=== PATIENT | female | born 1945 | race Caucasian/White ===

== ENCOUNTER → 2019-04-05 | Outpatient (CLI) | payer MEDICARE ==
[2019-04-05 14:41] VITALS: BP 130/82; PULSE 68; RESP 18; TEMP 97.4; BMI 24.0
--- NOTE | 2019-04-05 15:07 | P.GSHP ---
History of Present Illness H&P Date: 04/05/19 Chief Complaint: Mammographic abnormality right breast Starr is a 73-year-old white female who underwent a bilateral mammogram on . Following this it was recommended that she undergo an ultrasound which was performed on the same day of the right breast. Ultrasound of the right breast evidently did not show any specific lesions of concern and it was felt that the patient could have routine screening. The patient states that she has felt in her right breast at the 6 o'clock position a nodule for approximately 4 weeks. This has increased in size. This is not tender but feels hard to the patient. The patient has not noted any nipple discharge or skin changes. The patient has not had any infection in her breast and no trauma to the breast. She had 2 right breast open biopsies in the past which were not cancer. The patient was on a breast cancer study with Dr. Valle 1993, she was randomized to tamoxifen versus placebo for 5 years. She found that she was taking the placebo. She then was on the second study with Dr. Valle 1998 she was on a study tamoxifen versus raloxifene for 5 years and she was on the tamoxifen. The patient drinks coffee daily. She does not smoke and is not exposed to secondhand smoke. She eats chocolate only occasionally. Careful risk analysis reveals a 5 year risk of 5.5% versus 2.2% for average 72-year-old Lifetime risk 13.9% versus 5.7% for average 72-year-old Family history: 1. mother: breast at 70, other breast at 80 (bilateral breast cancer) 2. patient: basal cell posterior shoulder 3. maternal grandmother: uterine cancer 4. paternal aunt: ovarain cancer 5. maternal cousin: breast cancer Hormonal history: menarche: 14 G0 menopause: 51 BCP: less than 1 year hormones: none Past surgical history: 1. Hysterectomy, left ovaries, done for bleeding 2. Osteomyelitis 3. Basal cell removed posterior shoulder 4. Pilonidal cyst 5. bunyon 6. Bilateral cataracts Medical History: none Social History: smoke: stopped at 36, 1 PPD alcohol: occasional drugs: Marijuana in the past - Constitutional Comment: headaches Constitutional: Denies chills, Denies fever - EENT Eyes: denies blurred vision, denies pain Ears: deny: decreased hearing, tinnitus Ears, nose, mouth and throat: Reports headache, Denies sore throat - Breasts Breasts: bilateral: as per HPI - Cardiovascular Cardiovascular: Denies chest pain, Denies shortness of breath - Respiratory Respiratory: Denies cough, Denies 7 - Gastrointestinal Comment: PUD, hiatal hernia Gastrointestinal: Denies abdominal pain, Denies diarrhea, Denies nausea, Denies vomiting - Genitourinary (Female) Genitourinary: Denies dysuria, Denies hematuria - Musculoskeletal Comment: arthritis in her back and neck Musculoskeletal: Denies myalgias - Integumentary Comment: basal cell cancer - Neurological Neurological: Denies numbness, Denies weakness - Psychiatric Psychiatric: Denies anxiety, Denies depression - Endocrine Endocrine: Denies fatigue, Denies weight change - Hematologic/Lymphatic Comment: none - Allergic/Immunologic Allergic/Immunologic: Reports as per HPI, Reports seasonal allergies Past Medical History History of Any Multi-Drug Resistant Organisms: None Reported Smoking Status: Never smoker Medications and Allergies Home Medications Medication Instructions Recorded Confirmed Type Acetaminophen [Tylenol] 500 mg PO Q4-6H PRN 04/05/19 04/05/19 History Atorvastatin [Lipitor] 20 mg PO DAILY 04/05/19 04/05/19 History Butalb/Acetaminophen/Caffeine 1 tab PO DAILY PRN 04/05/19 04/05/19 History [Fioricet 50-300-40 mg Capsule] Calcium Carbonate [Calcium] 1,500 mg PO DAILY 04/05/19 04/05/19 History Cholecalciferol [Vitamin D3] 400 unit PO DAILY 04/05/19 04/05/19 History Methocarbamol [Robaxin] 500 mg PO DAILY PRN 04/05/19 04/05/19 History Omeprazole 40 mg PO DAILY 04/05/19 04/05/19 History Stool Softener 1 tab PO DAILY 04/05/19 04/05/19 History Allergies Allergy/AdvReac Type Severity Reaction Status Date / Time ciprofloxacin [From Cipro] Allergy Nausea Unverified 04/05/19 14:32 diphenhydramine Allergy Rash/Hives Unverified 04/05/19 14:32 [From Benadryl] meclizine [From Antivert] Allergy Rash/Hives Unverified 04/05/19 14:32 Penicillins Allergy Swelling Unverified 04/05/19 14:32 alcohol AdvReac Rash/Hives Unverified 04/05/19 14:32 cefuroxime [From Ceftin] AdvReac Nausea Unverified 04/05/19 14:32 cortisone AdvReac Rash/Hives Unverified 04/05/19 14:32 nickel AdvReac Rash/Hives Unverified 04/05/19 14:32 Sulfa (Sulfonamide AdvReac Nausea Unverified 04/05/19 14:32 Antibiotics) tixocortol AdvReac Rash/Hives Unverified 04/05/19 14:32 wool AdvReac Rash/Hives Unverified 04/05/19 14:32 Surgical - Exam Vital Signs Temp Pulse Resp BP Pulse Ox 97.4 F L 68 18 130/82 97 04/05/19 14:38 04/05/19 14:38 04/05/19 14:38 04/05/19 14:38 04/05/19 14:38 BMI 24.1 - General well developed, well nourished, no distress - Eyes normal ocular movement, no icteric - ENT no hearing loss, no congestion - Neck no masses, trachea midline - Respiratory normal respiratory effort, clear to auscultation - Cardiovascular Rhythm: regular Heart Sounds: normal: S1, S2 - Abdomen Abdomen: soft, non tender, no guarding, no rigid, no rebound - Integumentary normal turgor - Neurologic no disoriented, no combative - Musculoskeletal normal gait, normal posture - Psychiatric oriented to time, oriented to person, oriented to place, speech is normal, memory intact breast exam: right breast: Positional exam reveals multiple scars from prior biopsies, at the 6 o'clock position there is a 2 x 2 centimeters firm area which patient states is new, fibrocystic changes, very dense breast tissue Right axilla: No adenopathy of concern Left breast: Multi-positional exam very dense breast tissue, fibrocystic changes, no dominant masses or nodules of concern Left axilla: fullness but no discrete adenopathy Results mammogram and ultrasound reports reviewed Assessment and Plan Assessment: Impression: 1. Mass right breast 2. Abnormal right breast mammogram/ultrasound of the right breast initially definitive lesions 3. Scar tissue right breast 4. Fibrocystic breast changes 5. High risk breast cancer 6. Family history of breast cancer 7. Family history of cancer Plan: 1. Follow biopsies palpable lesion right breast 2. Consider genetic counseling and possible chemo prevention 3. Consider abstaining from caffeinated beverages and chocolate patient does not smoke and is not exposed to secondhand smoke 4. Medical management of medical conditions CC: Dr. Avendaño
== END ==
LOC: WWCWWP 14:17
PROVIDERS: ATTEND Surgery
DX: Z53.9 Procedure and treatment not carried out, unspecified reason (principal)

== ENCOUNTER → 2019-05-12 | Outpatient (CLI) | payer MEDICARE ==
--- NOTE | 2019-05-12 11:32 | P.PCN ---
Date of Procedure: 05/12/19 Preoperative Diagnosis: mass right at 6 oclock Postoperative Diagnosis: same Procedure(s) Performed: core biopsy of the right breast Anesthesia: local Surgeon: Ashley Meléndez Pathology: other (breast tissue) Condition: stable Disposition: same day Indications for Procedure: firm mass right bresat att 6 o clock not seen radiographically Operative Findings: dense breast tissue Description of Procedure: The palpable area of concern was identified in the right breast at the 6 o'clock position. The skin was prepped using Betadine. Approximately 5 mL of 1% lidocaine were used to anesthetize the skin in the area of the lesion. A small hayley was made in the skin. An 18-gauge Bard core biopsy needle was inserted into the neck and a sample was obtained. 3 samples were obtained. Specimens are sent to pathology. Patient tolerated procedure in stable condition. Steri- Strip was applied over the puncture site. The patient will follow up in 2 weeks for results.
== END | disposition home or self-care (01) ==
LOC: WWCWWP 10:56
PROVIDERS: ATTEND Surgery
DX: N64.89 Other specified disorders of breast (principal)
CPT/HCPCS: 88305

== ENCOUNTER → 2019-05-25 | Outpatient (CLI) | payer MEDICARE ==
[2019-05-25 09:06] VITALS: BP 114/77; PULSE 57; RESP 16; TEMP 98.1
--- NOTE | 2019-05-25 09:32 | P.PN ---
Subjective Progress Note Date: 05/25/19 Principal diagnosis: core biopsy results Starr is a 73 year old white female status post right breast core biopsy on 05-12-19. The pathology was benign, however the area of palpable abnormality remains present. The area of concern noted in the right breast is felt to be ne w. She wishes to have this excised in the operating room. She also comes for results of genetic testing. 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 The patient and her understand we are uncertain of the significance of this gene at this time. Objective - Vital Signs Vital signs: Vital Signs Temp 98.1 F 05/25/19 09:04 Pulse 57 L 05/25/19 09:04 Resp 16 05/25/19 09:04 BP 114/77 05/25/19 09:04 Pulse Ox 98 05/25/19 09:04 Intake & Output 05/24/19 05/25/19 05/25/19 18:59 06:59 18:59 Weight 62.596 kg - Constitutional General appearance: Present: average body habitus - EENT Eyes: Present: EOMI - Respiratory Respiratory: bilateral: CTA - Cardiovascular Heart sounds: normal: S1, S2 - Psychiatric Psychiatric: Present: A&O x's 3, appropriate affect, intact judgment & insight - Additional findings Additional findings: right bresat biopsy site mild echymosis no hematoma no infection persitant nodularity firm at 6 O Cock Assessment and Plan Assessment: Impression: 1. mass right breast 2. genetic evaluation VUS 3. family history of breast cnacer 4. family history of cancer Plan: 1. OR removal of palpable mass right breast 2. continue close survellience PATIENT HAS A TENDENCY TO FORM KELOIDS, HAS REQUESTED STERIOD INJECTION AT THE TIME OF SURGERY Risk and benfits of the procedure discussed with the patient and she wishes to proceed. Time with Patient: Less than 30
== END | disposition home or self-care (01) ==
LOC: WWCWWP 08:45
PROVIDERS: ATTEND Surgery
DX: Z53.9 Procedure and treatment not carried out, unspecified reason (principal)

== ENCOUNTER → 2019-07-07 | Outpatient (CLI) | payer MEDICARE ==
[2019-07-07 15:45] VITALS: BP 116/72; PULSE 54; RESP 18; TEMP 98.3
--- NOTE | 2019-07-07 16:06 | P.PN ---
Subjective Progress Note Date: 07/07/19 Principal diagnosis: mass right breast Starr is a 73-year-old white female who underwent a bilateral mammogram on . Following this it was recommended that she undergo an ultrasound which was performed on the same day of the right breast. Ultrasound of the right breast evidently did not show any specific lesions of concern and it was felt that the patient could have routine screening. The patient states that she has felt in her right breast at the 6 o'clock position a nodule for approximately 4 weeks. This has increased in size. This is not tender but feels hard to the patient. The patient has not noted any nipple discharge or skin changes. The patient has not had any infection in her breast and no trauma to the breast. She had 2 right breast open biopsies in the past which were not cancer. The patient was on a breast cancer study with Dr. Valle 1993, she was randomized to tamoxifen versus placebo for 5 years. She found that she was taking the placebo. She then was on the second study with Dr. Valle 1998 she was on a study tamoxifen versus raloxifene for 5 years and she was on the tamoxifen. The patient drinks coffee daily, switch to decaf.. She does not smoke and is not exposed to secondhand smoke. She eats chocolate only occasionally. The patient has not noted any changes in the size of her lump Rebiopsy the area of concern was done in . This revealed focal stromal fibrosis, focal small duct ectasia. Negative for tumor negative for atypia. Ultrasound of the right breast was done in March 2019 which did not show any specific lesions of concern. Additionally a bilateral mammogram was done on after which the ultrasound of the right breast was performed and secondary to the fact that nothing of concern was noted it was felt that routine screening would be adequate. [place] risk analysis reveals a 5 year risk of 5.5% versus 2.2% for average 72-year-old Lifetime risk 13.9% versus 5.7% for average 72-year-old Family history: 1. mother: breast at 70, other breast at 80 (bilateral breast cancer) 2. patient: basal cell posterior shoulder 3. maternal grandmother: uterine cancer 4. paternal aunt: ovarain cancer 5. maternal cousin: breast cancer Hormonal history: menarche: 14 G0 menopause: 51 BCP: less than 1 year hormones: none Past surgical history: 1. Hysterectomy, left ovaries, done for bleeding 2. Osteomyelitis 3. Basal cell removed posterior shoulder 4. Pilonidal cyst 5. bunyon 6. Bilateral cataracts Medical History: none Social History: smoke: stopped at 36, 1 PPD alcohol: occasional drugs: Marijuana in the past - Constitutional Comment: headaches Constitutional: Denies chills, Denies fever - EENT Eyes: denies blurred vision, denies pain Ears: deny: decreased hearing, tinnitus Ears, nose, mouth and throat: Reports headache, Denies sore throat - Breasts Breasts: bilateral: as per HPI - Cardiovascular Cardiovascular: Denies chest pain, Denies shortness of breath - Respiratory Respiratory: Denies cough, Denies 7 - Gastrointestinal Comment: PUD, hiatal hernia Gastrointestinal: Denies abdominal pain, Denies diarrhea, Denies nausea, Denies vomiting - Genitourinary (Female) Genitourinary: Denies dysuria, Denies hematuria - Musculoskeletal Comment: arthritis in her back and neck Musculoskeletal: Denies myalgias - Integumentary Comment: basal cell cancer - Neurological Neurological: Denies numbness, Denies weakness - Psychiatric Psychiatric: Denies anxiety, Denies depression - Endocrine Endocrine: Denies fatigue, Denies weight change - Hematologic/Lymphatic Comment: none - Allergic/Immunologic Allergic/Immunologic: Reports as per HPI, Reports seasonal allergies Past Medical History History of Any Multi-Drug Resistant Organisms: None Reported Smoking Status: Never smoker Objective - Vital Signs Vital signs: Vital Signs Temp 98.3 F 07/07/19 15:32 Pulse 54 L 07/07/19 15:32 Resp 18 07/07/19 15:32 BP 116/72 07/07/19 15:32 Pulse Ox 96 07/07/19 15:32 Intake & Output 07/06/19 07/07/19 07/07/19 18:59 06:59 18:59 Weight 63.503 kg - Exam BMI 24.8 - Constitutional General appearance: Present: average body habitus - EENT Eyes: Present: EOMI ENT: Present: hearing grossly normal - Neck Details: no adenopathy of concern Neck: Present: normal ROM - Respiratory Respiratory: bilateral: CTA - Cardiovascular Rhythm: regular Heart sounds: normal: S1, S2 - Gastrointestinal General gastrointestinal: Present: normal bowel sounds, soft - Integumentary Integumentary: Present: normal turgor - Musculoskeletal Musculoskeletal: Present: gait normal - Psychiatric Psychiatric: Present: A&O x's 3, appropriate affect, intact judgment & insight - Additional findings Additional findings: breast exam: bra 36B ptosis grade2/3 Inspection: Well-healed scar right breast from prior biopsies, bilateral mild nipple inversion which is been like that for many years Palpation: Right breast: At the 6 o'clock position there is increased fullness and nodularity approximately 2 cm x 2 cm in size fibrocystic changes no dominant masses or nodules of concern otherwise Right axilla: No adenopathy of concern Left breast: Multiple positional exam fibrocystic changes Left axilla: No adenopathy of concern Assessment and Plan Assessment: impression: 1. Fullness right breast 6 o'clock position 2. Scar tissue right breast 3. Fibrocystic breast changes 4. High risk breast cancer 5. Family history of breast cancer 6. Family history of cancer 7. 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 Plan: 1. Open biopsy 6:00 area right breast 2. Patient has asked about steroid injection at the time of surgery to decrease keloid formation of discussed this with pharmacy clear uncertain if they have anything to offer for this the patient wishes to proceed even if we do not have something to inject at the time of surgery CC: Dr. Espinoza Encounter: 15 minutes . 50% of time in planning and counselling
== END ==
LOC: WWCWWP 14:41
PROVIDERS: ATTEND Surgery
DX: Z53.9 Procedure and treatment not carried out, unspecified reason (principal)

== ENCOUNTER → 2019-07-18 | Day surgery (SDC) | payer MEDICARE ==
[2019-07-13 17:44] VITALS: BMI 24.4
[~2019-07-18] MED LIST: CLINDAMYCIN 900 MG in DEXTROSE 5% IN WATER 50 ML IVPB ONE; DEXAMETHASONE SOD PHOSPHATE 10 MG/ML 1 ML VIAL IV ONE; HEPARIN SODIUM,PORCINE 5,000 UNIT/ML 1 ML VIAL SQ ONE; HYDROmorphone 0.5 MG/0.5 ML SYRINGE IVP PRN; LACTATED RINGERS 1,000 ML IV ONE; LACTATED RINGERS 1,000 ML IV SCH; LIDOCAINE 1% (10MG/ML) FOR IV START INTRADERMA PRN; LIDOCAINE 1% INJ 10MG/ML (20 ML MDV) ONE; MIDAZOLAM 2 MG/2 ML VIAL ONE; ONDANSETRON 4 MG/2 ML VIAL IVP ONE; ONDANSETRON 4 MG/2 ML VIAL IVP PRN; PROPOFOL 10 MG/ML 20 ML VIAL IV ONE; SODIUM CHLORIDE 0.9% 50 ML with CLINDAMYCIN 900 MG IV ONE; SUCCINYLCHOLINE CHLORIDE 100 MG/5 ML SYR IV ONE; TRIAMCINOLONE ACETONIDE 40 MG/ML 1 ML VIAL IM ONE; TRIAMCINOLONE ACETONIDE 40 MG/ML 1 ML VIAL INTRADERMA ONE; ePHEDrine SULFATE/0.9% NACL/PF 50 MG/5 ML SYRINGE IV ONE; fentaNYL (PF) 50 MCG/ML 2 ML AMP ONE
--- NOTE | 2019-07-18 09:36 | P.OP ---
Date of Procedure: 07/18/19 Preoperative Diagnosis: Palpable mass right breast at 6:00/prior biopsy benign Postoperative Diagnosis: Most likely fibrocystic changes Procedure(s) Performed: Right breast excisional biopsy of palpable mass Anesthesia: KENROY Surgeon: Ashley Meléndez Estimated Blood Loss (ml): 2 Pathology: other (Right breast tissue approximately 3 cm x 3 cm) Condition: stable Disposition: same day Indications for Procedure: Palpable mass, increased in size, of concern to patient percutaneous biopsy benign Operative Findings: Dense tissue 6 o'clock position right breast Description of Procedure: The patient is a 73-year-old white female who noted increasing shortness in her right breast at the 6 o'clock position. Percutaneous biopsy was benign. However is definitely palpable increasing in size and the patient wishes for excision. The patient was taken to the operating room and following induction of anesthesia the right breast was prepped and draped in a sterile fashion. 8 mL of milligrams solution of Kenalog was injected into the area of the incision. Incision was made and carried down to the subcutaneous tissue. The breast tissue was identified. A very firm ridge of breast tissue was identified and there were noted to be multiple cysts within this area. Excision was performed. After assured that hemostasis was attained titanium clips were placed for localization. The specimen was painted for orientation. Deep tissues were closed using 3-0 Vicryl suture. The skin was closed using 4-0 Monocryl. Mastisol and Steri-Strips were applied. The patient tolerated the procedure in stable condition. All instrument and sponge counts were correct at the end of the case.
--- NOTE | 2019-07-18 09:38 | P.DS ---
Providers Attending physician: Ashley Meléndez Primary care physician: Ramon Avendaño Plan - Discharge Summary Discharge Rx Participant: Yes New Discharge Prescriptions: No Action Acetaminophen [Tylenol] 500 - 1,000 mg PO DIRECTED PRN PRN Reason: Pain Atorvastatin [Lipitor] 20 mg PO QAM Omeprazole 40 mg PO HS PRN PRN Reason: Heartburn Methocarbamol [Robaxin] 500 mg PO DAILY PRN PRN Reason: Pain Calcium Carbonate [Calcium] 1,200 mg PO DAILY Butalb/Acetaminophen/Caffeine [Fioricet 50-300-40 mg Capsule] 1 tab PO DAILY PRN PRN Reason: Headache Sennosides/Docusate Sodium [Senna Plus 8.6-50 mg Softgel] 1 each PO DAILY Cholecalciferol [Vitamin D3 (25 Mcg = 1000 Iu)] 2,000 unit PO DAILY Sinutab (Otc ) 1 tab PO DAILY PRN PRN Reason: Nasal Congestion Florajen(Dose Unknown) 1 cap PO QAM Discharge Medication List Acetaminophen [Tylenol] 500 - 1,000 mg PO DIRECTED PRN 04/05/19 [History] Atorvastatin [Lipitor] 20 mg PO QAM 04/05/19 [History] Butalb/Acetaminophen/Caffeine [Fioricet 50-300-40 mg Capsule] 1 tab PO DAILY PRN 04/05/19 [History] Calcium Carbonate [Calcium] 1,200 mg PO DAILY 04/05/19 [History] Methocarbamol [Robaxin] 500 mg PO DAILY PRN 04/05/19 [History] Omeprazole 40 mg PO HS PRN 04/05/19 [History] Cholecalciferol [Vitamin D3 (25 Mcg = 1000 Iu)] 2,000 unit PO DAILY 07/13/19 [History] Sennosides/Docusate Sodium [Senna Plus 8.6-50 mg Softgel] 1 each PO DAILY 07/13/19 [History] Sinutab (Otc ) 1 tab PO DAILY PRN 07/13/19 [History] Florajen(Dose Unknown) 1 cap PO QAM 07/14/19 [History] Follow up Appointment(s)/Referral(s): Ashley Meléndez MD [STAFF PHYSICIAN] - 1 Week Activity/Diet/Wound Care/Special Instructions: do not drive for 48 hours after discharge may shower after 48 hours wear bra at all times Discharge Disposition: HOME SELF-CARE
[2019-07-18 09:57] VITALS: TEMP 97.7
[2019-07-18 10:06] VITALS: RESP 16
[2019-07-18 11:09] VITALS: BP 106/69; PULSE 75
== END | disposition home or self-care (01) ==
LOC: OR 07:14
PROVIDERS: ATTEND Surgery
DX: N60.11 Diffuse cystic mastopathy of right breast (principal); E78.5 Hyperlipidemia, unspecified; K21.9 Gastro-esophageal reflux disease without esophagitis; K27.9 Peptic ulcer, site unspecified, unspecified as acute or chronic, without hemorrhage or perforation; K44.9 Diaphragmatic hernia without obstruction or gangrene; M46.92 Unspecified inflammatory spondylopathy, cervical region; Z80.3 Family history of malignant neoplasm of breast; Z80.41 Family history of malignant neoplasm of ovary; Z80.49 Family history of malignant neoplasm of other genital organs; Z90.710 Acquired absence of both cervix and uterus; Z79.899 Other long term (current) drug therapy; Z98.42 Cataract extraction status, left eye; Z98.41 Cataract extraction status, right eye; Z98.890 Other specified postprocedural states; Z87.891 Personal history of nicotine dependence
CPT/HCPCS: 88307; 19120; J2250; J1644; J1100; J3301; J2405; J2001; J3010; J0330; J2704

== ENCOUNTER → 2020-01-19 | Outpatient (CLI) | payer MEDICARE ==
[2020-01-19 09:39] VITALS: BP 123/78; PULSE 65; RESP 18; TEMP 98.2
--- NOTE | 2020-01-19 09:56 | P.PN ---
Subjective Progress Note Date: 01/19/20 Principal diagnosis: Follow-up biopsy right breast Starr is a 73-year-old white female who underwent a bilateral mammogram on . Following this it was recommended that she undergo an ultrasound which was performed on the same day of the right breast. Ultrasound of the right breast evidently did not show any specific lesions of concern and it was felt that the patient could have routine screening. The patient states that she has felt in her right breast at the 6 o'clock position a nodule for approximately 4 weeks. This has increased in size. This is not tender but feels hard to the patient. The patient has not noted any nipple discharge or skin changes. The patient has not had any infection in her breast and no trauma to the breast. She had 2 right breast open biopsies in the past which were not cancer. The patient was on a breast cancer study with Dr. Valle 1993, she was randomized to tamoxifen versus placebo for 5 years. She found that she was taking the placebo. She then was on the second study with Dr. Valle 1998 she was on a study tamoxifen versus raloxifene for 5 years and she was on the tamoxifen. The patient drinks coffee daily, switch to decaf.. She does not smoke and is not exposed to secondhand smoke. She eats chocolate only occasionally. The patient has not noted any changes in the size of her lump Rebiopsy via a core the area of concern was done in . This revealed focal stromal fibrosis, focal small duct ectasia. Negative for tumor negative for atypia. Ultrasound of the right breast was done in March 2019 which did not show any specific lesions of concern. Additionally a bilateral mammogram was done on after which the ultrasound of the right breast was performed and secondary to the fact that nothing of concern was noted it was felt that routine screening would be adequate. 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 The patient continued to have a persistent palpable abnormality at the site of the core biopsy. Therefore an excisional biopsy of this site was performed on July 18, 2019 which revealed columnar cell changes, metaplastic changes, usual type duct hyperplasia, fibrocystic changes and lobular adipose tissue. The patient at this time does not note any dominant masses or nodules of concern in either breast. She is not complaining of any pain in her breast. She is not complaining of any nipple discharge. Last mammogram was in breast mammogram performed on 12/2819 which was benign BIRADS 1. She is due for bilateral mammogram in March. [facility] risk analysis reveals a 5 year risk of 5.5% versus 2.2% for average 72-year-old Lifetime risk 13.9% versus 5.7% for average 72-year-old Family history: 1. mother: breast at 70, other breast at 80 (bilateral breast cancer) 2. patient: basal cell posterior shoulder 3. maternal grandmother: uterine cancer 4. paternal aunt: ovarain cancer 5. maternal cousin: breast cancer Hormonal history: menarche: 14 G0 menopause: 51 BCP: less than 1 year hormones: none Past surgical history: 1. Hysterectomy, left ovaries, done for bleeding 2. Osteomyelitis 3. Basal cell removed posterior shoulder 4. Pilonidal cyst 5. bunyon 6. Bilateral cataracts Medical History: none Social History: smoke: stopped at 36, 1 PPD alcohol: occasional drugs: Marijuana in the past - Constitutional Comment: headaches Constitutional: Denies chills, Denies fever - EENT Eyes: denies blurred vision, denies pain Ears: deny: decreased hearing, tinnitus Ears, nose, mouth and throat: Reports headache, Denies sore throat - Breasts Breasts: bilateral: as per HPI - Cardiovascular Cardiovascular: Denies chest pain, Denies shortness of breath - Respiratory Respiratory: Denies cough - Gastrointestinal Comment: PUD, hiatal hernia Gastrointestinal: Denies abdominal pain, Denies diarrhea, Denies nausea, Denies vomiting - Genitourinary (Female) Genitourinary: Denies dysuria, Denies hematuria - Musculoskeletal Comment: arthritis in her back and neck Musculoskeletal: Denies myalgias - Integumentary Comment: basal cell cancer - Neurological Neurological: Denies numbness, Denies weakness - Psychiatric Psychiatric: Denies anxiety, Denies depression - Endocrine Endocrine: Denies fatigue, Denies weight change - Hematologic/Lymphatic Comment: none - Allergic/Immunologic Allergic/Immunologic: Reports as per HPI, Reports seasonal allergies Past Medical History History of Any Multi-Drug Resistant Organisms: None Reported Smoking Status: Never smoker Objective - Vital Signs Vital signs: Vital Signs Temp 98.2 F 01/19/20 09:36 Pulse 65 01/19/20 09:36 Resp 18 07/31/20 09:36 BP 123/78 01/19/20 09:36 Pulse Ox 97 01/19/20 09:36 Intake & Output 01/18/20 01/19/20 01/19/20 18:59 06:59 18:59 Weight 62.596 kg - Exam BMI 24.4 - Constitutional General appearance: Present: average body habitus - EENT Eyes: Present: EOMI ENT: Present: hearing grossly normal - Neck Neck: Present: normal ROM - Respiratory Respiratory: bilateral: CTA - Cardiovascular Rhythm: regular Heart sounds: normal: S1, S2 - Gastrointestinal General gastrointestinal: Present: normal bowel sounds, soft - Integumentary Integumentary: Present: normal turgor - Musculoskeletal Musculoskeletal: Present: gait normal - Psychiatric Psychiatric: Present: A&O x's 3, appropriate affect, intact judgment & insight - Additional findings Additional findings: breast exam: BRA 36B inspection: grade 2 ptosis bilateral, multiple scars right breast well-healed Palpation: Right breast: Multiple positional exam no dominant masses or nodules of concern at this time fibrocystic changes Right axilla: No adenopathy of concern Left breast: Multi-positional exam no dominant masses or nodules of concern, fibrocystic changes Left axilla: No adenopathy of concern Assessment and Plan Assessment: Impression: 1. Fibrocystic breast changes 2. gene variant of unknown significance Plan: 1. Bilateral mammogram October the physician examined that time 2. Patient to call sooner if anything of concern CC: Dr. Avendaño encounter 25 minutes, > 50% of time in planning and counselling
== END | disposition home or self-care (01) ==
LOC: WWCWWP 09:31
PROVIDERS: ATTEND Surgery
DX: Z53.9 Procedure and treatment not carried out, unspecified reason (principal)

== ENCOUNTER → 2020-04-01 | Outpatient (CLI) | payer MEDICARE ==
--- NOTE | 2020-04-03 11:25 | MM ---
Reason for exam: screening (asymptomatic). Last mammogram was performed 2 months ago. History: Patient is postmenopausal, history of other cancer, and is nulliparous. Family history of breast cancer in mother at age 70, breast cancer in maternal aunt at age 60, and breast cancer in 3 maternal cousins. Benign excisional biopsy of the right breast, July 2019. 3 benign excisional biopsies of the right breast. Physical Findings: A clinical breast exam by your physician is recommended on an annual basis and results should be correlated with mammographic findings. MG 3D Screening Mammo W/Cad Bilateral CC and MLO view(s) were taken. Prior study comparison: January 16, 2020, right breast MG 3d diag mammo w/cad RT. January 16, 2020, mammogram. March 28, 2019, mammogram. Post surgical changes right breast. No significant changes when compared with prior studies. ASSESSMENT: Benign, BI-RAD 2 RECOMMENDATION: Routine screening mammogram of both breasts in 1 year.
== END | disposition home or self-care (01) ==
LOC: RADMAMWWP 09:30
PROVIDERS: ATTEND Surgery
DX: Z12.31 Encounter for screening mammogram for malignant neoplasm of breast (principal)
CPT/HCPCS: 77063; 77067

== ENCOUNTER → 2020-04-12 | Outpatient (CLI) | payer MEDICARE ==
[2020-04-12 09:36] VITALS: BP 107/67; PULSE 57; RESP 18; TEMP 98.6
--- NOTE | 2020-04-12 10:15 | P.PN ---
Subjective Progress Note Date: 04/12/20 Principal diagnosis: fibrocystic breast disease Starr is a 74-year-old white female who underwent a bilateral mammogram on . Following this it was recommended that she undergo an ultrasound which was performed on the same day of the right breast. Ultrasound of the right breast evidently did not show any specific lesions of concern and it was felt that the patient could have routine screening. The patient states that she has felt in her right breast at the 6 o'clock position a nodule for approximately 4 weeks. This has increased in size. This is not tender but feels hard to the patient. The patient has not noted any nipple discharge or skin changes. The patient has not had any infection in her breast and no trauma to the breast. She had 2 right breast open biopsies in the past which were not cancer. The patient was on a breast cancer study with Dr. Valle 1993, she was randomized to tamoxifen versus placebo for 5 years. She found that she was taking the placebo. She then was on the second study with Dr. Valle 1998 she was on a study tamoxifen versus raloxifene for 5 years and she was on the tamoxifen. The patient drinks coffee daily, switch to decaf.. She does not smoke and is not exposed to secondhand smoke. She eats chocolate only occasionally. The patient has not noted any changes in the size of her lump Rebiopsy via a core the area of concern was done in [id number]. This revealed focal stromal fibrosis, focal small duct ectasia. Negative for tumor negative for atypia. Ultrasound of the right breast was done in March 2019 which did not show any specific lesions of concern. Additionally a bilateral mammogram was done on after which the ultrasound of the right breast was performed and secondary to the fact that nothing of concern was noted it was felt that routine screening would be adequate. 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 The patient continued to have a persistent palpable abnormality at the site of the core biopsy. Therefore an excisional biopsy of this site was performed on July 18, 2019 which revealed columnar cell changes, metaplastic changes, usual type duct hyperplasia, fibrocystic changes and lobular adipose tissue. The patient at this time does not note any dominant masses or nodules of concern in either breast. She is not complaining of any pain in her breast. She is not complaining of any nipple discharge. Last mammogram was in breast mammogram performed on 12/2819 which was benign BIRADS 1. She is due for bilateral mammogram in March. Bilateral mammogram on 04-01-20 benign BIRADS 2 The patient has not noted any dominant masses or nodules of concern in either breast. She is not complaining of any breast pain. She is not complaining of any abnormal nipple discharge at this time. She has not had any recent history of trauma or infection in the breast. [facility] risk analysis reveals a 5 year risk of 5.5% versus 2.2% for average 72-year-old Lifetime risk 13.9% versus 5.7% for average 72-year-old Family history: 1. mother: breast at 70, other breast at 80 (bilateral breast cancer) 2. patient: basal cell posterior shoulder 3. maternal grandmother: uterine cancer 4. paternal aunt: ovarain cancer 5. maternal cousin: breast cancer Hormonal history: menarche: 14 G0 menopause: 51 BCP: less than 1 year hormones: none Past surgical history: 1. Hysterectomy, left ovaries, done for bleeding 2. Osteomyelitis 3. Basal cell removed posterior shoulder 4. Pilonidal cyst 5. bunyon 6. Bilateral cataracts Medical History: none Social History: smoke: stopped at 36, 1 PPD alcohol: occasional drugs: Marijuana in the past - Constitutional Comment: headaches Constitutional: Denies chills, Denies fever - EENT Eyes: denies blurred vision, denies pain Ears: deny: decreased hearing, tinnitus Ears, nose, mouth and throat: Reports headache, Denies sore throat - Breasts Breasts: bilateral: as per HPI - Cardiovascular Cardiovascular: Denies chest pain, Denies shortness of breath - Respiratory Respiratory: Denies cough - Gastrointestinal Comment: PUD, hiatal hernia Gastrointestinal: Denies abdominal pain, Denies diarrhea, Denies nausea, Denies vomiting - Genitourinary (Female) Genitourinary: Denies dysuria, Denies hematuria - Musculoskeletal Comment: arthritis in her back and neck Musculoskeletal: Denies myalgias - Integumentary Comment: basal cell cancer - Neurological Neurological: Denies numbness, Denies weakness - Psychiatric Psychiatric: Denies anxiety, Denies depression - Endocrine Endocrine: Denies fatigue, Denies weight change - Hematologic/Lymphatic Comment: none - Allergic/Immunologic Allergic/Immunologic: Reports as per HPI, Reports seasonal allergies Objective - Vital Signs Vital signs: Vital Signs Temp 98.6 F 04/12/20 09:34 Pulse 57 L 04/12/20 09:34 Resp 18 04/12/20 09:34 BP 107/67 04/12/20 09:34 Pulse Ox 99 04/12/20 09:34 Intake & Output 04/11/20 04/12/20 04/12/20 18:59 06:59 18:59 Weight 61.235 kg - Exam BMI 23.9 - Constitutional General appearance: Present: average body habitus - EENT Eyes: Present: EOMI ENT: Present: hearing grossly normal - Neck Neck: Present: normal ROM - Respiratory Respiratory: bilateral: CTA - Cardiovascular Rhythm: regular Heart sounds: normal: S1, S2 - Gastrointestinal General gastrointestinal: Present: normal bowel sounds, soft - Integumentary Integumentary: Present: normal turgor - Musculoskeletal Musculoskeletal: Present: gait normal - Psychiatric Psychiatric: Present: A&O x's 3, appropriate affect, intact judgment & insight - Additional findings Additional findings: breast exam: BRA: 36B inspection: grade 2 ptosis bilateral, multiple scars right breast well healed Palpation: right breast: Multiple positional exam no dominant masses or nodules of concern Right axilla: No adenopathy of concern Left breast: Multiple positional exam no dominant masses or nodules of concern Left axilla: No adenopathy of concern Assessment and Plan Assessment: Impression: 1. Fibrocystic breast changes bilaterally 2. Nothing at this time to warrant breast biopsy Plan: 1. Bilateral mammogram 1 year with physician exam at that time 2. Patient to call sooner if any questions or concerns Cc: Dr. Amos Gomez encounter 25 minutes > 50% of time in planning and counselling
== END | disposition home or self-care (01) ==
LOC: WWCWWP 09:22
PROVIDERS: ATTEND Surgery
DX: Z53.9 Procedure and treatment not carried out, unspecified reason (principal)

== ENCOUNTER → 2020-08-30 | Outpatient (CLI) | payer MEDICARE ==
[2020-08-30 13:58] VITALS: BP 96/66; PULSE 71; RESP 18; TEMP 98.5
--- NOTE | 2020-08-30 14:52 | P.PN ---
Subjective Progress Note Date: 08/30/20 Principal diagnosis: fibrocystic breast disease, mastodynia fibrocystic breast disease/breast pain Starr underwent a core biopsy of an area of a palpable concern in the right breast on [id number]. This revealed focal stromal fibrosis, focal small duct ectasia. Negative for tumor negative for atypia. Additionally a bilateral mammogram was done on after which the ultrasound of the right breast was performed and secondary to the fact that nothing of concern was noted it was felt that routine screening would be adequate. 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 The patient continued to have a persistent palpable abnormality at the site of the core biopsy. Therefore an excisional biopsy of this site was performed on July 18, 2019 which revealed columnar cell changes, metaplastic changes, usual type duct hyperplasia, fibrocystic changes and lobular adipose tissue. The patient at this time does not note any dominant masses or nodules of concern in either breast. She is still complaining of pain in her right breast it is not at the site of the biopsy. The patient states it is around the nipple areolar area and is shooting in nature. It started several months ago. She notes the pain almost daily. It is sharp in intensity and radiates through the breast. This has increased in intensity several months ago. She is not complaining of any nipple discharge. The intensity seems to be decreasing. Bilateral mammogram on 04-01-20 benign BIRADS 2 The patient has not noted any dominant masses or nodules of concern in either breast. She is not complaining of any abnormal nipple discharge at this time. She has not had any recent history of trauma or infection in the breast. She was started on estrogen (vaginal cream and a skin cream) she stopped vaginal cream several weeks ago. She is uncertain if the pain was related to the estrogen. The first was estradiol cream .01% twice a week, and the second clobetasol cream .05% BID. She states it is helping with skin itching. The patient drinks coffee daily, switch to decaf.. She does not smoke and is not exposed to secondhand smoke. chocolate: none [facility] risk analysis reveals a 5 year risk of 5.5% versus 2.2% for average 72-year-old Lifetime risk 13.9% versus 5.7% for average 72-year-old Family history: 1. mother: breast at 70, other breast at 80 (bilateral breast cancer) 2. patient: basal cell posterior shoulder 3. maternal grandmother: uterine cancer 4. paternal aunt: ovarain cancer 5. maternal cousin: breast cancer Hormonal history: menarche: 14 G0 menopause: 51 BCP: less than 1 year hormones: none Past surgical history: 1. Hysterectomy, left ovaries, done for bleeding 2. Osteomyelitis 3. Basal cell removed posterior shoulder 4. Pilonidal cyst 5. bunyon 6. Bilateral cataracts Medical History: none Social History: smoke: stopped at 36, 1 PPD alcohol: occasional drugs: Marijuana in the past - Constitutional Comment: headaches Constitutional: Denies chills, Denies fever - EENT Eyes: denies blurred vision, denies pain Ears: deny: decreased hearing, tinnitus Ears, nose, mouth and throat: Reports headache, Denies sore throat - Breasts Breasts: bilateral: as per HPI - Cardiovascular Cardiovascular: Denies chest pain, Denies shortness of breath - Respiratory Respiratory: Denies cough - Gastrointestinal Comment: PUD, hiatal hernia Gastrointestinal: Denies abdominal pain, Denies diarrhea, Denies nausea, Denies vomiting - Genitourinary (Female) Genitourinary: Denies dysuria, Denies hematuria - Musculoskeletal Comment: arthritis in her back and neck Musculoskeletal: Denies myalgias - Integumentary Comment: basal cell cancer - Neurological Neurological: Denies numbness, Denies weakness - Psychiatric Psychiatric: Denies anxiety, Denies depression - Endocrine Endocrine: Denies fatigue, Denies weight change - Hematologic/Lymphatic Comment: none - Allergic/Immunologic Allergic/Immunologic: Reports as per HPI, Reports seasonal allergies Objective - Vital Signs Vital signs: Vital Signs Temp 98.5 F 08/30/20 13:53 Pulse 71 08/30/20 13:53 Resp 18 08/30/20 13:53 BP 96/66 08/30/20 13:53 Pulse Ox 98 08/30/20 13:53 Intake & Output 08/29/20 08/30/20 08/30/20 18:59 06:59 18:59 Weight 61.235 kg - Exam BMI 23.9 - Constitutional General appearance: Present: average body habitus - EENT Eyes: Present: EOMI ENT: Present: hearing grossly normal - Neck Neck: Present: normal ROM - Respiratory Respiratory: bilateral: CTA - Cardiovascular Rhythm: regular Heart sounds: normal: S1, S2 - Gastrointestinal General gastrointestinal: Present: soft - Integumentary Integumentary: Present: normal turgor - Musculoskeletal Musculoskeletal: Present: gait normal - Psychiatric Psychiatric: Present: A&O x's 3, appropriate affect, intact judgment & insight - Additional findings Additional findings: breast exam: BRA: 34B inspection: Multiple scars right breast from prior biopsies, bilateral nipple inversion chronic Palpation: Right breast: Multiple scars right breast from prior biopsies, chronic nipple inversion, fibrocystic changes a multi-positional exam no dominant masses or nodules of concern Right axilla: No adenopathy of concern Left breast: Fibrocystic changes a multi-positional exam Left axilla: No adenopathy of concern Assessment and Plan Assessment: Pressure: 1. Fibrocystic breast changes 2. Multiple scars right breast from prior biopsies/mastodynia right breast improving 3. Patient on estrogen cream which has not seemed to exacerbate the discomfort in the breast Plan: 1. Lifestyle modifications will be continued/avoid caffeine caffeine 2. Nothing at this time which would warrant interventional biopsy 3. If patient gets worse patient will call us 4. Bilateral mammogram in March physician exam at that time Cc: Dr. Trinidad
== END | disposition home or self-care (01) ==
LOC: WWCWWP 13:44
PROVIDERS: ATTEND Surgery
DX: N60.12 Diffuse cystic mastopathy of left breast (principal); N60.11 Diffuse cystic mastopathy of right breast; L90.5 Scar conditions and fibrosis of skin; Z79.818 Long term (current) use of other agents affecting estrogen receptors and estrogen levels; Z87.891 Personal history of nicotine dependence

== ENCOUNTER → 2021-04-03 | Outpatient (CLI) | payer MEDICARE ==
--- NOTE | 2021-04-04 11:04 | MM ---
Reason for exam: screening (asymptomatic). Last mammogram was performed 1 year ago. History: Patient is postmenopausal, history of other cancer, and is nulliparous. Family history of breast cancer in mother at age 70, breast cancer in maternal aunt at age 60, and breast cancer in 3 maternal cousins. Benign excisional biopsy of the right breast, July 2019. 3 benign excisional biopsies of the right breast. Physical Findings: A clinical breast exam by your physician is recommended on an annual basis and results should be correlated with mammographic findings. MG 3D Screening Mammo W/Cad Bilateral CC and MLO view(s) were taken. Prior study comparison: January 16, 2020, mammogram. March 28, 2019, mammogram. June 17, 2018, mammogram, performed at [facility]. June 06, 2018, mammogram, performed at [facility]. The breast tissue is heterogeneously dense. This may lower the sensitivity of mammography. There is no discrete abnormality. ASSESSMENT: Benign, BI-RAD 2 RECOMMENDATION: Routine screening mammogram of both breasts in 1 year.
== END | disposition home or self-care (01) ==
LOC: RADMAMWWP 10:14
PROVIDERS: ATTEND Surgery
DX: Z12.31 Encounter for screening mammogram for malignant neoplasm of breast (principal); Z78.0 Asymptomatic menopausal state; Z80.3 Family history of malignant neoplasm of breast
CPT/HCPCS: 77063; 77067

== ENCOUNTER → 2021-04-10 | Outpatient (CLI) | payer MEDICARE ==
[2021-04-10 14:23] VITALS: BP 108/71; PULSE 53; RESP 18; TEMP 98.4
--- NOTE | 2021-04-10 14:33 | P.PN ---
Subjective Progress Note Date: 04/10/21 Principal diagnosis: Fibrocystic breast changes Starr is a 75 year old white female who underwent a bilateral mammogram on [id number], this was benign BIRADS 2. The patient does not feel any dominant masses or nodules of concern. She underwent core biopsy of the right breast on 1119. This was benign. 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 She continued to have persistent palpable abnormality at the site of the core biopsy and therefore underwent an excisional biopsy on June which was benign. The patient is not using any estrogen vaginal cream at this time. Family history: 1. mother: breast at 70, other breast at 80 (bilateral breast cancer) 2. patient: basal cell posterior shoulder 3. maternal grandmother: uterine cancer 4. paternal aunt: ovarain cancer 5. maternal cousin: breast cancer Hormonal history: menarche: 14 G0 menopause: 51 BCP: less than 1 year hormones: none Past surgical history: 1. Hysterectomy, left ovaries, done for bleeding 2. Osteomyelitis 3. Basal cell removed posterior shoulder 4. Pilonidal cyst 5. bunyon 6. Bilateral cataracts Medical History: none Social History: smoke: stopped at 36, 1 PPD alcohol: occasional drugs: Marijuana in the past - Constitutional Comment: headaches Constitutional: Denies chills, Denies fever - EENT Eyes: denies blurred vision, denies pain Ears: deny: decreased hearing, tinnitus Ears, nose, mouth and throat: Reports headache, Denies sore throat - Breasts Breasts: bilateral: as per HPI - Cardiovascular Cardiovascular: Denies chest pain, Denies shortness of breath - Respiratory Respiratory: Denies cough - Gastrointestinal Comment: PUD, hiatal hernia Gastrointestinal: Denies abdominal pain, Denies diarrhea, Denies nausea, Denies vomiting - Genitourinary (Female) Genitourinary: Denies dysuria, Denies hematuria - Musculoskeletal Comment: arthritis in her back and neck Musculoskeletal: Denies myalgias - Integumentary Comment: basal cell cancer - Neurological Neurological: Denies numbness, Denies weakness - Psychiatric Psychiatric: Denies anxiety, Denies depression - Endocrine Endocrine: Denies fatigue, Denies weight change - Hematologic/Lymphatic Comment: none - Allergic/Immunologic Allergic/Immunologic: Reports as per HPI, Reports seasonal allergies Objective - Vital Signs Vital signs: Vital Signs Temp 98.4 F 04/10/21 14:21 Pulse 53 L 04/10/21 14:21 Resp 18 04/10/21 14:21 BP 108/71 04/10/21 14:21 Pulse Ox 94 L 04/10/21 14:21 Intake & Output 04/09/21 04/10/21 04/10/21 18:59 06:59 18:59 Weight 56.699 kg - Exam BMI 22.1 - Constitutional General appearance: Present: cooperative - EENT Eyes: Present: edentulous ENT: Present: hearing grossly normal - Neck Neck: Present: normal ROM - Respiratory Respiratory: bilateral: CTA - Cardiovascular Rhythm: regular Heart sounds: normal: S1, S2 - Gastrointestinal General gastrointestinal: Present: soft - Integumentary Integumentary: Present: normal turgor - Musculoskeletal Musculoskeletal: Present: gait normal - Psychiatric Psychiatric: Present: A&O x's 3, appropriate affect, intact judgment & insight - Additional findings Additional findings: Breast Exam: BRA: 36B inspection: bilateral grade 2 ptosis palpation: right breast: Multiple scars from prior biopsies, no dominant masses or nodules of concern on multiple positional exam Right axilla: No adenopathy of concern Left breast: Multi-positional exam fibrocystic changes no dominant masses or nodules of concern Left axilla: No adenopathy of concern Assessment and Plan Assessment: Impression: Fibrocystic breast changes bilateral Plan: Repeat bilateral mammogram 1 year with physician exam at that time CC: Dr. Trinidad
== END ==
LOC: WWCWWP 14:08
PROVIDERS: ATTEND Surgery
DX: N60.11 Diffuse cystic mastopathy of right breast (principal); N60.12 Diffuse cystic mastopathy of left breast; Z87.891 Personal history of nicotine dependence; Z88.0 Allergy status to penicillin; Z88.2 Allergy status to sulfonamides; Z88.1 Allergy status to other antibiotic agents; Z88.9 Allergy status to unspecified drugs, medicaments and biological substances; Z91.048 Other nonmedicinal substance allergy status

== ENCOUNTER → 2022-04-06 | Outpatient (CLI) | payer MEDICARE ==
--- NOTE | 2022-04-06 17:33 | MM ---
Reason for Exam: Screening (asymptomatic). Last screening mammogram was performed 12 month(s) ago. Patient History: Menarche at age 14. Patient has no children. Left ovary removed at age 39. Right ovary removed at age 39. Hysterectomy at age 39. Postmenopausal. Other cancer. Benign Excisional Biopsy on the right side. Benign Excisional Biopsy on the right side. Benign Excisional Biopsy on the right side. 07/2019, Benign Excisional Biopsy on the right side. Maternal cousin had breast cancer. Maternal cousin had breast cancer. Maternal cousin had breast cancer. Maternal aunt had breast cancer, age 60. Mother had breast cancer, age 70. Risk Values: Ansley 5 year model risk: 5.2%. NCI Lifetime model risk: 10.9%. Prior Study Comparison: 01/16/2020 Right Diagnostic Mammogram, [facility]. 04/01/2020 Bilateral Screening Mammogram, [facility]. 04/03/2021 Bilateral Screening Mammogram, [facility]. Tissue Density: The breast tissue is heterogeneously dense. This may lower the sensitivity of mammography. Findings: Analyzed By CAD. There is no suspicious group of microcalcifications or new suspicious mass in either breast. Overall Assessment: Benign, BI-RAD 2 Management: Screening Mammogram of both breasts in 1 year. A clinical breast exam by your physician is recommended on an annual basis and results should be correlated with mammographic findings. Electronically signed and approved by: Chapin Castillo M.D. Radiologis
== END | disposition home or self-care (01) ==
LOC: RADMAMWWP 07:52
PROVIDERS: ATTEND Surgery
DX: Z12.31 Encounter for screening mammogram for malignant neoplasm of breast (principal)
CPT/HCPCS: 77063; 77067

== ENCOUNTER → 2022-04-10 | Outpatient (CLI) | payer MEDICARE ==
[2022-04-10 10:46] VITALS: BP 114/75; PULSE 52; RESP 16
--- NOTE | 2022-04-10 11:07 | P.PN ---
Subjective Progress Note Date: 04/10/22 Principal diagnosis: fibrocystic breast changes Fibrocystic breast changes Starr is a 76 year old white female who underwent a bilateral mammogram on , this was benign BIRADS 2. The patient does not feel any dominant masses or nodules of concern. She underwent core biopsy of the right breast on [id number]. This was benign. 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 She continued to have persistent palpable abnormality at the site of the core biopsy and therefore underwent an excisional biopsy on June which was benign. The patient occasionally uses estrogen vaginal cream. Ansley Risk evaluation : 5 year 5.2% lifetime 10.9% Discussed with the patient her Ansley risk evaluation numbers. We have discussed chemoprevention at this time she has declined will be followed closely. Family history: 1. mother: breast at 70, other breast at 80 (bilateral breast cancer) 2. patient: basal cell posterior shoulder 3. maternal grandmother: uterine cancer 4. paternal aunt: ovarain cancer 5. maternal cousin: breast cancer Hormonal history: menarche: 14 G0 menopause: 51 BCP: less than 1 year hormones: none Past surgical history: 1. Hysterectomy, left ovaries, done for bleeding 2. Osteomyelitis 3. Basal cell removed posterior shoulder 4. Pilonidal cyst 5. bunyon 6. Bilateral cataracts Medical History: none Social History: smoke: stopped at 36, 1 PPD alcohol: occasional drugs: Marijuana in the past - Constitutional Comment: headaches Constitutional: Denies chills, Denies fever - EENT Eyes: denies blurred vision, denies pain Ears: deny: decreased hearing, tinnitus Ears, nose, mouth and throat: Reports headache, Denies sore throat - Breasts Breasts: bilateral: as per HPI - Cardiovascular Cardiovascular: Denies chest pain, Denies shortness of breath - Respiratory Respiratory: Denies cough - Gastrointestinal Comment: PUD, hiatal hernia Gastrointestinal: Denies abdominal pain, Denies diarrhea, Denies nausea, Denies vomiting - Genitourinary (Female) Genitourinary: Denies dysuria, Denies hematuria - Musculoskeletal Comment: arthritis in her back and neck Musculoskeletal: Denies myalgias - Integumentary Comment: basal cell cancer - Neurological Neurological: Denies numbness, Denies weakness - Psychiatric Psychiatric: Denies anxiety, Denies depression - Endocrine Endocrine: Denies fatigue, Denies weight change - Hematologic/Lymphatic Comment: none - Allergic/Immunologic Allergic/Immunologic: Reports as per HPI, Reports seasonal allergies Objective - Vital Signs Vital signs: Vital Signs Temp Pulse 52 L 04/10/22 10:42 Resp 16 04/10/22 10:42 BP 114/75 04/10/22 10:42 Pulse Ox 98 04/10/22 10:42 FiO2 Intake & Output 04/09/22 04/10/22 04/10/22 18:59 06:59 18:59 Weight 56.699 kg - Exam BMI: 22.1 - Constitutional General appearance: Present: cooperative - EENT Eyes: Present: EOMI ENT: Present: hearing grossly normal - Neck Neck: Present: normal ROM - Respiratory Respiratory: bilateral: CTA - Cardiovascular Heart sounds: normal: S1, S2 - Gastrointestinal General gastrointestinal: Present: soft - Integumentary Integumentary: Present: normal turgor - Musculoskeletal Musculoskeletal: Present: gait normal - Psychiatric Psychiatric: Present: A&O x's 3, appropriate affect, intact judgment & insight - Additional findings Additional findings: Breast Exam: BRA: 36B inspection: bilateral grade 2 ptosis; bilateral chronic slight nipple inversion palpation: right breast: Multiple scars from prior biopsies, no dominant masses or nodules of concern on multiple positional exam Right axilla: No adenopathy of concern Left breast: Multi-positional exam fibrocystic changes no dominant masses or nodules of concern Left axilla: No adenopathy of concern Assessment and Plan Assessment: Impression: Bilateral fibrocystic breast changes Bilateral chronic slight nipple inversion Bilateral mammogram from [id number] benign BIRADS 2 Plan: Bilateral mammogram in 1 year with physician exam at that time At this time patient has declined chemoprevention with discussed her Ansley five- year risk of 5.2% Cc: Dr. Lam
== END | disposition home or self-care (01) ==
LOC: WWCWWP 09:53
PROVIDERS: ATTEND Surgery
DX: Z53.9 Procedure and treatment not carried out, unspecified reason (principal)

== ENCOUNTER → 2022-11-11 | Outpatient (CLI) | payer MEDICARE ==
--- NOTE | 2022-11-11 15:08 | USB ---
Reason for Exam: Clinical finding. Patient History: Menarche at age 14. Patient has no children. Left ovary removed at age 39. Right ovary removed at age 39. Hysterectomy at age 39. Postmenopausal. Other cancer. Benign Excisional Biopsy on the right side. Benign Excisional Biopsy on the right side. Benign Excisional Biopsy on the right side. 07/2019, Benign Excisional Biopsy on the right side. Maternal cousin had breast cancer. Maternal cousin had breast cancer. Maternal cousin had breast cancer. Maternal aunt had breast cancer, age 60. Mother had breast cancer, age 70. Risk Values: Ansley 5 year model risk: 5.2%. NCI Lifetime model risk: 10.3%. Technique: Method: Whole Breast Handheld. Prior Study Comparison: 04/01/2020 Bilateral Screening Mammogram, [facility]. 04/03/2021 Bilateral Screening Mammogram, [facility]. 04/06/2022 Bilateral MG 3D screening mammo w/cad, [facility]. Findings: The whole breast of the right breast, the axilla of the right breast and the retroareolar of the right breast were scanned. Imaged: Ultrasound imaging of: All 4 quadrants, the retroareolar region and axilla. Tiny anechoic cyst at 7:00 is imaged from nipple measuring 0.2 x 3 x 2 mm. Dilated duct at the retroareolar region dilated up to 3 mm. No evidence for organizing fluid collection or mass. Overall Assessment: Benign, BI-RAD 2 Management: Screening Mammogram of both breasts in 1 year. Clinical management for patient's pain. A clinical breast exam by your physician is recommended on an annual basis and results should be correlated with mammographic findings. This exam should not preclude additional follow-up of suspicious palpable abnormalities. Results were given to the patient verbally at the time of exam. Electronically signed and approved by: Dinesh Brasher DO
--- NOTE | 2022-11-11 15:09 | MM ---
Reason for Exam: Clinical finding. Last screening mammogram was performed 7 month(s) ago. Patient History: Menarche at age 14. Patient has no children. Left ovary removed at age 39. Right ovary removed at age 39. Hysterectomy at age 39. Postmenopausal. Other cancer. Benign Excisional Biopsy on the right side. Benign Excisional Biopsy on the right side. Benign Excisional Biopsy on the right side. 07/2019, Benign Excisional Biopsy on the right side. Maternal cousin had breast cancer. Maternal cousin had breast cancer. Maternal cousin had breast cancer. Maternal aunt had breast cancer, age 60. Mother had breast cancer, age 70. Risk Values: Ansley 5 year model risk: 5.2%. NCI Lifetime model risk: 10.3%. Prior Study Comparison: 06/06/2018 Screening Mammogram, [facility]. 06/17/2018 Screening Mammogram, [facility]. 03/28/2019 Screening Mammogram, Unknown. 01/16/2020 Right Diagnostic Mammogram, [facility]. 01/16/2020 Screening Mammogram, Unknown. 04/01/2020 Bilateral Screening Mammogram, [facility]. 04/03/2021 Bilateral Screening Mammogram, [facility]. 04/06/2022 Bilateral MG 3D screening mammo w/cad, [facility]. Tissue Density: Right: The breast tissue is heterogeneously dense. This may lower the sensitivity of mammography. Findings: Analyzed By CAD. Right breast surgical clips. Findings correlate with patient's pain. No new suspicious masses, calcifications or distortions. Overall Assessment: Incomplete: need additional imaging evaluation, BI-RAD 0 Management: Diagnostic Breast Ultrasound of the right breast. Results were given to the patient verbally at the time of exam. Patient should continue monthly self-breast exams. A clinical breast exam by your physician is recommended on an annual basis. This exam should not preclude additional follow-up of suspicious palpable abnormalities. Note on Ansley scores and lifetime risk: 1. A Ansley score greater than 3% is considered moderate risk. If this is the case, consider specialist referral to assess eligibility for a risk reducing agent. 2. If overall lifetime risk for the development of breast cancer is 20% or higher, the patient may qualify for future screening with alternating mammogram and breast MRI. Electronically signed and approved by: Dinesh Brasher DO
== END | disposition home or self-care (01) ==
LOC: RADMAMWWP 13:59
PROVIDERS: ATTEND Family Medicine
DX: N60.01 Solitary cyst of right breast (principal); Z78.0 Asymptomatic menopausal state; Z80.3 Family history of malignant neoplasm of breast; Z90.721 Acquired absence of ovaries, unilateral
CPT/HCPCS: 77065; 76641; G0279; 77061

== ENCOUNTER → 2022-11-26 | Outpatient (CLI) | payer MEDICARE ==
--- NOTE | 2022-11-26 12:25 | P.PN ---
Subjective Progress Note Date: 11/26/22 Principal diagnosis: Fibrocystic breast disease Fibrocystic breast changes Starr is a 76 year old white female who underwent a bilateral mammogram on , this was benign BIRADS 2. The patient does not feel any dominant masses or nodules of concern. She underwent core biopsy of the right breast on [id number]. This was benign. 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 She continued to have persistent palpable abnormality at the site of the core biopsy and therefore underwent an excisional biopsy on June which was benign. The patient occasionally uses estrogen vaginal cream. Patient began having pain in her right breast approximately 6 weeks ago. The pain was located in the periareolar region. It spread medially. She has it intermittently. It is at its worst it is at least an 8 on a scale of 1-10 with 10 being the worst. She is not complaining of any nipple discharge or skin changes. She has not had any recent trauma or infection in the breast. She is on meloxicam for arthritis. The patient underwent a right diagnostic mammogram on and a right breast ultrasound. These were felt to be benign BIRADS 2. Bilateral screening of both breasts at 1 year interval was recommended. Caffiene: none nicotine: none chocolate: occasional BCP: used 1 months hormones: estrogen vaginal cream annually Ansley Risk evaluation : 5 year 5.2% lifetime 10.9% Discussed with the patient her Ansley risk evaluation numbers. We have discussed chemoprevention at this time she has declined will be followed closely. Family history: 1. mother: breast at 70, other breast at 80 (bilateral breast cancer) 2. patient: basal cell posterior shoulder 3. maternal grandmother: uterine cancer 4. paternal aunt: ovarain cancer 5. maternal cousin: breast cancer Hormonal history: menarche: 14 G0 menopause: 51 BCP: less than 1 year hormones: none Past surgical history: 1. Hysterectomy, left ovaries, done for bleeding 2. Osteomyelitis 3. Basal cell removed posterior shoulder 4. Pilonidal cyst 5. bunyon 6. Bilateral cataracts Medical History: none Social History: smoke: stopped at 36, 1 PPD alcohol: occasional drugs: Marijuana in the past - Constitutional Comment: headaches Constitutional: Denies chills, Denies fever - EENT Eyes: denies blurred vision, denies pain Ears: deny: decreased hearing, tinnitus Ears, nose, mouth and throat: Reports headache, Denies sore throat - Breasts Breasts: bilateral: as per HPI - Cardiovascular Cardiovascular: Denies chest pain, Denies shortness of breath - Respiratory Respiratory: Denies cough - Gastrointestinal Comment: PUD, hiatal hernia Gastrointestinal: Denies abdominal pain, Denies diarrhea, Denies nausea, Denies vomiting - Genitourinary (Female) Genitourinary: Denies dysuria, Denies hematuria - Musculoskeletal Comment: arthritis in her back and neck Musculoskeletal: Denies myalgias - Integumentary Comment: basal cell cancer - Neurological Neurological: Denies numbness, Denies weakness - Psychiatric Psychiatric: Denies anxiety, Denies depression - Endocrine Endocrine: Denies fatigue, Denies weight change - Hematologic/Lymphatic Comment: none - Allergic/Immunologic Allergic/Immunologic: Reports as per HPI, Reports seasonal allergies Objective - Constitutional General appearance: Present: cooperative - EENT Eyes: Present: EOMI ENT: Present: hearing grossly normal - Neck Neck: Present: normal ROM - Respiratory Respiratory: bilateral: CTA - Cardiovascular Heart sounds: normal: S1, S2 - Gastrointestinal General gastrointestinal: Present: soft - Integumentary Integumentary: Present: normal turgor - Musculoskeletal Musculoskeletal: Present: gait normal - Psychiatric Psychiatric: Present: A&O x's 3, appropriate affect, intact judgment & insight - Additional findings Additional findings: Breast Exam: BRA: 36B inspection: bilateral grade 2 ptosis; bilateral chronic slight nipple inversion palpation: right breast: Multiple scars from prior biopsies, no dominant masses or nodules of concern on multiple positional exam Right axilla: No adenopathy of concern Left breast: Multi-positional exam fibrocystic changes no dominant masses or nodules of concern Left axilla: No adenopathy of concern Assessment and Plan Assessment: Pressure: Mastodynia right breast of uncertain etiology Nothing on physical examination or radiographically of which would warrant an interventional biopsy Fibrocystic breast changes Plan: Bilateral mammogram and October with physician exam at that time Again discussed chemoprophylaxis secondary to her Ansley score, and additionally taking an antiestrogen agent may decrease her breast discomfort Appointment with medical oncology CC: DR. Lam
[2022-11-26 12:34] VITALS: BP 112/72; PULSE 58; RESP 17; TEMP 98.2
== END ==
LOC: WWCWWP 11:47
PROVIDERS: ATTEND Surgery
DX: R92.8 Other abnormal and inconclusive findings on diagnostic imaging of breast (principal); N64.4 Mastodynia; N60.11 Diffuse cystic mastopathy of right breast; Z80.3 Family history of malignant neoplasm of breast; Z88.0 Allergy status to penicillin; Z88.2 Allergy status to sulfonamides; Z91.048 Other nonmedicinal substance allergy status; Z88.1 Allergy status to other antibiotic agents; Z88.8 Allergy status to other drugs, medicaments and biological substances; Z88.9 Allergy status to unspecified drugs, medicaments and biological substances; Z87.891 Personal history of nicotine dependence

== ENCOUNTER → 2023-04-07 | Outpatient (CLI) | payer MEDICARE ==
--- NOTE | 2023-04-09 13:19 | MM ---
Reason for Exam: Screening (asymptomatic). Last screening mammogram was performed 12 month(s) ago. Patient History: Menarche at age 14. Patient has no children. Hysterectomy at age 39. Postmenopausal. Other cancer. Benign Excisional Biopsy on the right side. Benign Excisional Biopsy on the right side. Benign Excisional Biopsy on the right side. 07/2019, Benign Excisional Biopsy on the right side. Maternal cousin had breast cancer. Maternal cousin had breast cancer. Maternal cousin had breast cancer. Maternal aunt had breast cancer, age 60. Mother had breast cancer, age 70. Risk Values: Ansley 5 year model risk: 5.2%. NCI Lifetime model risk: 10.3%. Prior Study Comparison: 04/03/2021 Bilateral Screening Mammogram, [facility]. 04/06/2022 Bilateral MG 3D screening mammo w/cad, [facility]. 11/11/2022 Right MG 3D diag mammo w/cad RT, [facility]. Tissue Density: The breast tissue is heterogeneously dense. This may lower the sensitivity of mammography. Findings: Analyzed By CAD. Surgical clips in the right breast. There is no suspicious group of microcalcifications or new suspicious mass. Overall Assessment: Benign, BI-RAD 2 Management: Screening Mammogram of both breasts in [address] [facility] will attempt to contact patient to return for supplemental views and ultrasound if indicated. Patient should continue monthly self-breast exams. A clinical breast exam by your physician is recommended on an annual basis. This exam should not preclude additional follow-up of suspicious palpable abnormalities. Note on Ansley scores and lifetime risk: 1. A Ansley score greater than 3% is considered moderate risk. If this is the case, consider specialist referral to assess eligibility for a risk reducing agent. 2. If overall lifetime risk for the development of breast cancer is 20% or higher, the patient may qualify for future screening with alternating mammogram and breast MRI. Electronically signed and approved by: Dinesh Brasher DO
== END | disposition home or self-care (01) ==
LOC: RADMAMWWP 09:29
PROVIDERS: ATTEND Surgery
DX: Z12.31 Encounter for screening mammogram for malignant neoplasm of breast (principal); Z80.3 Family history of malignant neoplasm of breast
CPT/HCPCS: 77063; 77067

== ENCOUNTER → 2023-04-14 | Outpatient (CLI) | payer MEDICARE ==
[2023-04-14 10:02] VITALS: BP 110/72; PULSE 55; RESP 18; TEMP 98.5
--- NOTE | 2023-04-14 10:31 | P.PN ---
Subjective Progress Note Date: 04/14/23 Fibrocystic breast changes Starr is a 77 year old white female who underwent a bilateral mammogram on , this was benign BIRADS 2. The patient does not feel any dominant masses or nodules of concern. She underwent core biopsy of the right breast on [id number]. This was benign. 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 She continued to have persistent palpable abnormality at the site of the core biopsy and therefore underwent an excisional biopsy on June which was benign. The patient occasionally uses estrogen vaginal cream in the past but not recently. She had been having right breast pain which resolved when she started taking the raloxifene. She had a bilateral mammogram on 04-07-23 which was BIRAD 2 She is not complaining of any new lumps masses or nodules of concern in either breast. N0te Dr. Muniz 01-05-23 reviewed she was started on raloxifene; she is not complaining of any side effects related to the raloxifene. Should be noted that she was on the STAR trial in the past and took tamoxifen f or 5 years. This ended about 30 years ago. Caffiene: none nicotine: none chocolate: occasional BCP: used 1 months hormones: estrogen vaginal cream annually Ansley Risk evaluation : 5 year 5.2% lifetime 10.3% Again discussed the Ansley risk evaluation numbers and she is presently on chemoprophylaxis. Family history: 1. mother: breast at 70, other breast at 80 (bilateral breast cancer) 2. patient: basal cell posterior shoulder 3. maternal grandmother: uterine cancer 4. paternal aunt: ovarain cancer 5. maternal cousin: breast cancer Hormonal history: menarche: 14 G0 menopause: 51 BCP: less than 1 year hormones: none Past surgical history: 1. Hysterectomy, left ovaries, done for bleeding 2. Osteomyelitis 3. Basal cell removed posterior shoulder 4. Pilonidal cyst 5. bunyon 6. Bilateral cataracts Medical History: none Social History: smoke: stopped at 36, 1 PPD alcohol: occasional drugs: Marijuana in the past - Constitutional Comment: headaches Constitutional: Denies chills, Denies fever - EENT Eyes: denies blurred vision, denies pain Ears: deny: decreased hearing, tinnitus Ears, nose, mouth and throat: Reports headache, Denies sore throat - Breasts Breasts: bilateral: as per HPI - Cardiovascular Cardiovascular: Denies chest pain, Denies shortness of breath - Respiratory Respiratory: Denies cough - Gastrointestinal Comment: PUD, hiatal hernia Gastrointestinal: Denies abdominal pain, Denies diarrhea, Denies nausea, Denies vomiting - Genitourinary (Female) Genitourinary: Denies dysuria, Denies hematuria - Musculoskeletal Comment: arthritis in her back and neck Musculoskeletal: Denies myalgias - Integumentary Comment: basal cell cancer - Neurological Neurological: Denies numbness, Denies weakness - Psychiatric Psychiatric: Denies anxiety, Denies depression - Endocrine Endocrine: Denies fatigue, Denies weight change - Hematologic/Lymphatic Comment: none - Allergic/Immunologic Allergic/Immunologic: Reports as per HPI, Reports seasonal allergies Objective - Vital Signs Vital signs: Vital Signs Temp 98.5 F 04/14/23 09:51 Pulse 55 L 04/14/23 09:51 Resp 18 04/14/23 09:51 BP 110/72 04/14/23 09:51 Pulse Ox 98 04/14/23 09:51 FiO2 Intake & Output 04/13/23 04/14/23 04/14/23 18:59 06:59 18:59 Weight 58.06 kg - Constitutional General appearance: Present: cooperative - EENT Eyes: Present: EOMI ENT: Present: hearing grossly normal - Neck Neck: Present: normal ROM - Respiratory Respiratory: bilateral: CTA - Cardiovascular Rhythm: regular Heart sounds: normal: S1, S2 - Integumentary Integumentary: Present: normal turgor - Musculoskeletal Musculoskeletal: Present: gait normal - Psychiatric Psychiatric: Present: A&O x's 3, appropriate affect, intact judgment & insight - Additional findings Additional findings: Breast Exam: BRA: 36B inspection: bilateral grade 2 ptosis; bilateral chronic slight nipple inversion palpation: right breast: Multiple scars from prior biopsies, no dominant masses or nodules of concern on multiple positional exam Right axilla: No adenopathy of concern Left breast: Multi-positional exam fibrocystic changes no dominant masses or nodules of concern Left axilla: No adenopathy of concern Assessment and Plan Assessment: Impression: Mastodynia right breast soft after started on raloxifene Nothing on physical examination or radiographically of which would warrant an interventional biopsy Fibrocystic breast changes Plan: Bilateral mammogram 1 year with appointment follow up with medical oncology CC: DR. Lam
== END ==
LOC: WWCWWP 09:27
PROVIDERS: ATTEND Surgery
DX: N60.11 Diffuse cystic mastopathy of right breast (principal); N64.4 Mastodynia; Z85.3 Personal history of malignant neoplasm of breast; Z87.891 Personal history of nicotine dependence; Z88.1 Allergy status to other antibiotic agents; Z88.0 Allergy status to penicillin; Z88.8 Allergy status to other drugs, medicaments and biological substances; Z91.048 Other nonmedicinal substance allergy status; Z88.2 Allergy status to sulfonamides

== ENCOUNTER → 2023-07-15 | Outpatient (CLI) | payer MEDICARE ==
--- NOTE | 2023-07-15 13:55 | FL ---
EXAMINATION TYPE: FL barium swallow DATE OF EXAM: 07/15/2023 CLINICAL INDICATION: 77-year-old female reflux, throat clearing, losing voice, GERD COMPARISON: None Total Fluoroscopy Time: 2 minutes 37 seconds DAP: 368.56 mGycm2 76 images obtained. FINDINGS: The swallowing mechanism is normal. There is moderate hypertrophy of the cricopharyngeus causing mild to moderate narrowing of the esophageal lumen. The thoracic portion has a normal course and caliber. There is fine mucosal irregularity along the di stal half of the esophagus probably representing tertiary peristaltic waves. No abnormal filling defe ct is seen. There is a small sliding hiatal hernia with moderate gastroesophageal reflux. IMPRESSION: 1. Small sliding hiatal hernia with moderate gastroesophageal reflux. 2. Moderate hypertrophy of the cricopharyngeus muscle causing at least mild narrowing of the lumen of the cervical esophagus. The muscle hypertrophy may be secondary to chronic gastroesophageal reflux d isease. 3. Fine mucosal irregularity along the distal half of the esophagus could reflect tertiary peristalti c contractions. Endoscopy can exclude subtle mucosal erosions/esophagitis.
== END | disposition home or self-care (01) ==
LOC: RADUSWWP 10:41
PROVIDERS: ATTEND Otolaryngology
DX: H61.22 Impacted cerumen, left ear (principal); K21.9 Gastro-esophageal reflux disease without esophagitis; K44.9 Diaphragmatic hernia without obstruction or gangrene
CPT/HCPCS: 74220

== ENCOUNTER 2023-10-01 11:44 | Day surgery (SDC) | payer MEDICARE ==
[2023-09-30 13:40] VITALS: BMI 22.8
[~2023-10-01 11:44] MED LIST changes: -CLINDAMYCIN 900 MG in DEXTROSE 5% IN WATER 50 ML IVPB ONE; -DEXAMETHASONE SOD PHOSPHATE 10 MG/ML 1 ML VIAL IV ONE; -HEPARIN SODIUM,PORCINE 5,000 UNIT/ML 1 ML VIAL SQ ONE; -HYDROmorphone 0.5 MG/0.5 ML SYRINGE IVP PRN; -LACTATED RINGERS 1,000 ML IV ONE; -LIDOCAINE 1% (10MG/ML) FOR IV START INTRADERMA PRN; -LIDOCAINE 1% INJ 10MG/ML (20 ML MDV) ONE; -MIDAZOLAM 2 MG/2 ML VIAL ONE; -ONDANSETRON 4 MG/2 ML VIAL IVP ONE; -ONDANSETRON 4 MG/2 ML VIAL IVP PRN; -PROPOFOL 10 MG/ML 20 ML VIAL IV ONE; -SODIUM CHLORIDE 0.9% 50 ML with CLINDAMYCIN 900 MG IV ONE; -SUCCINYLCHOLINE CHLORIDE 100 MG/5 ML SYR IV ONE; -TRIAMCINOLONE ACETONIDE 40 MG/ML 1 ML VIAL IM ONE; -TRIAMCINOLONE ACETONIDE 40 MG/ML 1 ML VIAL INTRADERMA ONE; -ePHEDrine SULFATE/0.9% NACL/PF 50 MG/5 ML SYRINGE IV ONE; -fentaNYL (PF) 50 MCG/ML 2 ML AMP ONE
[2023-10-01] MEDS: LACTATED RINGERS 1,000 ML IV ONE (13:00)
[2023-10-01 13:38] VITALS: TEMP 98
[2023-10-01] MEDS ORDERED: PROPOFOL 10 MG/ML 20 ML VIAL IV ONE (14:00)
--- NOTE | 2023-10-01 14:08 | P.PCN ---
Date of Procedure: 10/01/23 Procedure(s) Performed: BRIEF HISTORY: Patient is a 78-year-old, pleasant, white female scheduled for an upper endoscopy as a part of evaluation of long-standing history of GERD for which she has been on omeprazole 40 mg daily for several years. For the last 2 months she is been having chronic hoarseness and chronic cough despite recent antibiotic therapy. Scheduled for an upper endoscopy to evaluate for possible GERD causing the symptoms PROCEDURE PERFORMED: Esophagogastroduodenoscopy. PREOPERATIVE DIAGNOSIS: []. IV sedation per anesthesia. PROCEDURE: After informed consent was obtained, the patient was brought into the endoscopy unit. IV sedation was administered by Anesthesia under continuous monitoring. Initially the Olympus GIF-140 video endoscope was inserted into the mouth. Esophagus intubated without any difficulty. It was gradually advanced into the stomach and duodenum and carefully examined. The bulb and the second part of the duodenum appeared normal. The scope at this time was withdrawn to the stomach, adequately insufflated with air, and upon careful examination, muco sa of the antrum,and mild gastritis and biopsies were done from this area. Mucosa of the body, cardia and the fundus appeared normal.multiple small gastric polyps noted which were biopsied. The scope was then withdrawn into the esophagus.small hiatal hernia noted. The GE junction was located at 39 cm from the incisors. The esophagus appeared normal. There were no erosions or ulcerations seen and the patient tolerated the procedure well. IMPRESSION: 1. Small hiatal hernia. 2. Mild antral gastritis. 3. Multiple small gastric polyps status post biopsy RECOMMENDATIONS: The findings of this examination were discussed with the patientas well as a family. She was advised to follow with the biopsy results. She'll continue with omeprazole 40 mg half hour before dinnertime and follow antireflux measures.].
[2023-10-01 15:02] VITALS: BP 130/80; PULSE 62; RESP 18
== END 2023-10-01 14:57 | disposition home or self-care (01) ==
LOC: ORWHC2ENDO 11:44
PROVIDERS: ATTEND Internal Medicine Gastroenterology
DX: K29.50 Unspecified chronic gastritis without bleeding (principal); K31.7 Polyp of stomach and duodenum; K44.9 Diaphragmatic hernia without obstruction or gangrene; K21.9 Gastro-esophageal reflux disease without esophagitis; Z88.0 Allergy status to penicillin; Z88.1 Allergy status to other antibiotic agents; Z88.2 Allergy status to sulfonamides; Z88.8 Allergy status to other drugs, medicaments and biological substances; Z91.09 Other allergy status, other than to drugs and biological substances; Z79.899 Other long term (current) drug therapy; Z87.891 Personal history of nicotine dependence
CPT/HCPCS: 43239; J2704; 88305

== ENCOUNTER → 2024-04-07 | Outpatient (CLI) | payer MEDICARE ==
--- NOTE | 2024-04-07 14:55 | MM ---
Reason for Exam: Screening (asymptomatic). Last screening mammogram was performed 12 month(s) ago. Patient History: Menarche at age 14. Patient has no children. Hysterectomy at age 39. Postmenopausal. Other cancer. Benign Excisional Biopsy on the right side. Benign Excisional Biopsy on the right side. Benign Excisional Biopsy on the right side. 07/2019, Benign Excisional Biopsy on the right side. Maternal cousin had breast cancer. Maternal cousin had breast cancer. Maternal cousin had breast cancer. Maternal aunt had breast cancer, age 60. Mother had breast cancer, age 70. Risk Values: Ansley 5 year model risk: 5.1%. NCI Lifetime model risk: 9.6%. Prior Study Comparison: 04/06/2022 Bilateral MG 3D screening mammo w/cad, [facility]. 11/11/2022 Right MG 3D diag mammo w/cad RT, [facility]. 04/07/2023 Bilateral MG 3D screening mammo w/cad, [facility]. Tissue Density: The breasts are heterogeneously dense, which may obscure small masses. Findings: Analyzed By CAD. Right breast surgical clips. Right breast: There is no suspicious group of microcalcifications or new suspicious mass. Left breast: There is no suspicious group of microcalcifications or new suspicious mass. Overall Assessment: Benign, BI-RAD 2 Management: Screening Mammogram of both breasts in [address] [facility] will attempt to contact patient to return for supplemental views and ultrasound if indicated. Patient should continue monthly self-breast exams. A clinical breast exam by your physician is recommended on an annual basis. This exam should not preclude additional follow-up of suspicious palpable abnormalities. Note on Ansley scores and lifetime risk: 1. A Ansley score greater than 3% is considered moderate risk. If this is the case, consider specialist referral to assess eligibility for a risk reducing agent. 2. If overall lifetime risk for the development of breast cancer is 20% or higher, the patient may qualify for future screening with alternating mammogram and breast MRI. [facility], , 04/07/2024 2:50 PM. Electronically signed and approved by: Dinesh Brasher DO
== END | disposition home or self-care (01) ==
LOC: RADMAMWWP 09:14
PROVIDERS: ATTEND Surgery
CPT/HCPCS: 77063; 77067

== ENCOUNTER → 2024-06-01 | Outpatient (CLI) | payer MEDICARE ==
[2024-06-01 09:53] VITALS: BP 134/79; PULSE 59; RESP 16; TEMP 97.8
--- NOTE | 2024-06-01 10:25 | P.PN ---
Subjective Progress Note Date: 06/01/24 Principal diagnosis: high risk breast cancer 06-01-24 Fibrocystic breast changes Starr is a 78 year old white female who underwent a bilateral mammogram on , this was benign BIRADS 2. The patient does not feel any dominant masses or nodules of concern. She underwent core biopsy of the right breast on [id number]. This was benign. The patient had genetic testing performed in her testing revealed a gene of uncertain significance reclassified as likely benign. She continued to have persistent palpable abnormality at the site of the core biopsy and therefore underwent an excisional biopsy on June which was benign. The patient occasionally uses estrogen vaginal cream in the past but now not used for a year She had been having right breast pain which resolved when she started taking the raloxifene. She had a bilateral mammogram on which was BIRAD 2 She is not complaining of any new lumps masses or nodules of concern in either breast. Note Dr. Muniz 07-06-23 reviewed she was started on raloxifene; she is not complaining of any side effects related to the raloxifene, she saw Dr. Muniz last week May 25 2024 and still recommended to continue the rolaxifene will request the note Should be noted that she was on the STAR trial in the past and took tamoxifen for 5 years. This ended about 30 years ago. Caffiene: none nicotine: none chocolate: occasional BCP: used 1 months hormones: estrogen vaginal cream annually Ansley Risk evaluation : 5 year 5.1% lifetime 9.6% Again discussed the Ansley risk evaluation numbers and she is presently on chemoprophylaxis. Family history: 1. mother: breast at 70, other breast at 80 (bilateral breast cancer) 2. patient: basal cell posterior shoulder 3. maternal grandmother: uterine cancer 4. paternal aunt: ovarain cancer 5. maternal cousin: breast cancer Hormonal history: menarche: 14 G0 menopause: 51 BCP: less than 1 year hormones: none Past surgical history: 1. Hysterectomy, left ovaries, done for bleeding 2. Osteomyelitis 3. Basal cell removed posterior shoulder 4. Pilonidal cyst 5. bunyon 6. Bilateral cataracts 7. bunyon right foot 8. right shoulder replacement Medical History: none Social History: smoke: stopped at 36, 1 PPD alcohol: occasional drugs: Marijuana in the past - Constitutional Comment: headaches Constitutional: Denies chills, Denies fever - EENT Eyes: denies blurred vision, denies pain Ears: deny: decreased hearing, tinnitus Ears, nose, mouth and throat: Reports headache, Denies sore throat - Breasts Breasts: bilateral: as per HPI - Cardiovascular Cardiovascular: Denies chest pain, Denies shortness of breath - Respiratory Respiratory: Denies cough - Gastrointestinal Comment: PUD, hiatal hernia Gastrointestinal: Denies abdominal pain, Denies diarrhea, Denies nausea, Denies vomiting - Genitourinary (Female) Genitourinary: Denies dysuria, Denies hematuria - Musculoskeletal Comment: arthritis in her back and neck Musculoskeletal: Denies myalgias - Integumentary Comment: basal cell cancer - Neurological Neurological: Denies numbness, Denies weakness - Psychiatric Psychiatric: Denies anxiety, Denies depression - Endocrine Endocrine: Denies fatigue, Denies weight change - Hematologic/Lymphatic Comment: none - Allergic/Immunologic Allergic/Immunologic: Reports as per HPI, Reports seasonal allergies Objective - Vital Signs Vital signs: Vital Signs Temp 97.8 F 06/01/24 09:50 Pulse 59 L 06/01/24 09:50 Resp 16 06/01/24 09:50 BP 134/79 06/01/24 09:50 Pulse Ox 99 06/01/24 09:50 FiO2 Intake & Output 05/31/24 06/01/24 06/01/24 18:59 06:59 18:59 Weight 57.606 kg - Constitutional General appearance: Present: cooperative - EENT Eyes: Present: EOMI ENT: Present: hearing grossly normal - Neck Neck: Present: normal ROM Thyroid: bilateral: normal size - Respiratory Respiratory: bilateral: CTA - Cardiovascular Rhythm: regular Heart sounds: normal: S1, S2 - Gastrointestinal General gastrointestinal: Present: soft - Integumentary Integumentary: Present: normal turgor - Musculoskeletal Musculoskeletal: Present: gait normal - Psychiatric Psychiatric: Present: A&O x's 3, appropriate affect, intact judgment & insight - Additional findings Additional findings: Breast Exam: BRA: 36B inspection: bilateral grade 2 ptosis; bilateral chronic slight nipple inversion palpation: right breast: Multiple scars from prior biopsies, no dominant masses or nodules of concern on multiple positional exam Right axilla: No adenopathy of concern Left breast: Multi-positional exam fibrocystic changes no dominant masses or nodules of concern Left axilla: No adenopathy of concern fungal infection in the skin under the right breast near the medial aspect Assessment and Plan Assessment: Impression: Mastodynia right breast improved after started on raloxifene Nothing on physical examination or radiographically of which would warrant an interventional biopsy Fibrocystic breast changes Fungal infection under right breast Plan: Bilateral mammogram March 2025 with appointment at that time follow up with medical oncology nystwerner under right breast, patient to follow-up if this does not clear up Follow-up in 1 month to check skin changes under right breast CC: DR. Lam
== END ==
LOC: WWCWWP 08:47
PROVIDERS: ATTEND Surgery
DX: Z12.31 Encounter for screening mammogram for malignant neoplasm of breast (principal); N60.12 Diffuse cystic mastopathy of left breast; R92.8 Other abnormal and inconclusive findings on diagnostic imaging of breast; Z88.0 Allergy status to penicillin; Z88.1 Allergy status to other antibiotic agents; Z88.2 Allergy status to sulfonamides; Z88.8 Allergy status to other drugs, medicaments and biological substances; Z91.048 Other nonmedicinal substance allergy status; Z80.3 Family history of malignant neoplasm of breast; Z87.891 Personal history of nicotine dependence

== ENCOUNTER → 2024-06-29 | Outpatient (CLI) | payer MEDICARE ==
[2024-06-29 09:09] VITALS: BP 124/61; PULSE 59; RESP 17; TEMP 98.4
--- NOTE | 2024-06-29 09:21 | P.PN ---
Subjective Progress Note Date: 06/29/24 Principal diagnosis: rash under right breast medical aspect 06-29-24 Principal diagnosis: high risk breast cancer Fibrocystic breast changes Starr is a 78 year old white female who underwent a bilateral mammogram on , this was benign BIRADS 2. The patient does not feel any dominant masses or nodules of concern. She underwent core biopsy of the right breast on [id number]. This was benign. The patient had genetic testing performed in her testing revealed a gene of uncertain significance reclassified as likely benign. She continued to have persistent palpable abnormality at the site of the core biopsy and therefore underwent an excisional biopsy on June which was benign. The patient occasionally uses estrogen vaginal cream in the past but now not used for a year She had been having right breast pain which resolved when she started taking the raloxifene. She had a bilateral mammogram on which was BIRAD 2 She is not complaining of any new lumps masses or nodules of concern in either breast. Note Dr. Muniz 07-06-23 reviewed she was started on raloxifene; she is not complaining of any side effects related to the raloxifene, she saw Dr. Muniz last week May 25 2024 and still recommended to continue the rolaxifene will request the note Should be noted that she was on the STAR trial in the past and took tamoxifen for 5 years. This ended about 30 years ago. She does have a rash in the inferior skin fold of the right breast in the medial aspect, this was treated as a fungal infection but has not resolved. Caffiene: none nicotine: none chocolate: occasional BCP: used 1 months hormones: estrogen vaginal cream annually Ansley Risk evaluation : 5 year 5.1% lifetime 9.6% Again discussed the Ansley risk evaluation numbers and she is presently on chemoprophylaxis. Family history: 1. mother: breast at 70, other breast at 80 (bilateral breast cancer) 2. patient: basal cell posterior shoulder 3. maternal grandmother: uterine cancer 4. paternal aunt: ovarain cancer 5. maternal cousin: breast cancer Hormonal history: menarche: 14 G0 menopause: 51 BCP: less than 1 year hormones: none Past surgical history: 1. Hysterectomy, left ovaries, done for bleeding 2. Osteomyelitis 3. Basal cell removed posterior shoulder 4. Pilonidal cyst 5. bunyon 6. Bilateral cataracts 7. bunyon right foot 8. right shoulder replacement Medical History: none Social History: smoke: stopped at 36, 1 PPD alcohol: occasional drugs: Marijuana in the past - Constitutional Comment: headaches Constitutional: Denies chills, Denies fever - EENT Eyes: denies blurred vision, denies pain Ears: deny: decreased hearing, tinnitus Ears, nose, mouth and throat: Reports headache, Denies sore throat - Breasts Breasts: bilateral: as per HPI - Cardiovascular Cardiovascular: Denies chest pain, Denies shortness of breath - Respiratory Respiratory: Denies cough - Gastrointestinal Comment: PUD, hiatal hernia Gastrointestinal: Denies abdominal pain, Denies diarrhea, Denies nausea, Denies vomiting - Genitourinary (Female) Genitourinary: Denies dysuria, Denies hematuria - Musculoskeletal Comment: arthritis in her back and neck Musculoskeletal: Denies myalgias - Integumentary Comment: basal cell cancer - Neurological Neurological: Denies numbness, Denies weakness - Psychiatric Psychiatric: Denies anxiety, Denies depression - Endocrine Endocrine: Denies fatigue, Denies weight change - Hematologic/Lymphatic Comment: none - Allergic/Immunologic Allergic/Immunologic: Reports as per HPI, Reports seasonal allergies Objective - Vital Signs Vital signs: Vital Signs Temp 98.4 F 06/29/24 09:06 Pulse 59 L 06/29/24 09:06 Resp 17 06/29/24 09:06 BP 124/61 06/29/24 09:06 Pulse Ox 98 06/29/24 09:06 FiO2 Intake & Output 06/28/24 06/29/24 06/29/24 18:59 06:59 18:59 Weight 57.606 kg - Constitutional General appearance: Present: cooperative - EENT Eyes: Present: EOMI ENT: Present: hearing grossly normal - Neck Neck: Present: normal ROM - Respiratory Respiratory: bilateral: CTA - Cardiovascular Rhythm: regular Heart sounds: normal: S1, S2 - Integumentary Integumentary: Present: normal turgor - Musculoskeletal Musculoskeletal: Present: gait normal - Psychiatric Psychiatric: Present: A&O x's 3, appropriate affect, intact judgment & insight - Additional findings Additional findings: Breast Exam: BRA: 36B inspection: bilateral grade 2 ptosis; bilateral chronic slight nipple inversion palpation: right breast: Multiple scars from prior biopsies, no dominant masses or nodules of concern on multi positional exam Right axilla: No adenopathy of concern Left breast: Multi-positional exam fibrocystic changes no dominant masses or nodules of concern Left axilla: No adenopathy of concern Rash persistent in the skin under the right breast near the medial aspect Assessment and Plan Assessment: Impression: Mastodynia right breast improved after started on raloxifene Nothing on physical examination or radiographically of which would warrant an interventional biopsy Fibrocystic breast changes Fungal infection under right breast Plan: Bilateral mammogram March 2025 with appointment at that time follow up with medical oncology dermatology appointment, 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 Lam
== END ==
LOC: WWCWWP 08:32
PROVIDERS: ATTEND Surgery
DX: N64.4 Mastodynia (principal); N60.11 Diffuse cystic mastopathy of right breast; B36.8 Other specified superficial mycoses; Z88.2 Allergy status to sulfonamides; Z88.1 Allergy status to other antibiotic agents; Z88.0 Allergy status to penicillin; Z88.8 Allergy status to other drugs, medicaments and biological substances; Z87.891 Personal history of nicotine dependence

== ENCOUNTER → 2024-10-27 | Outpatient (CLI) | payer MEDICARE ==
--- NOTE | 2024-10-27 15:14 | USB ---
Reason for Exam: Clinical finding. Patient History: Menarche at age 14. Patient has no children. Hysterectomy at age 39. Postmenopausal. Other cancer. Benign Excisional Biopsy on the right side. Benign Excisional Biopsy on the right side. Benign Excisional Biopsy on the right side. 07/2019, Benign Excisional Biopsy on the right side. Maternal cousin had breast cancer. Maternal cousin had breast cancer. Maternal cousin had breast cancer. Maternal aunt had breast cancer, age 60. Mother had breast cancer, age 70. Risk Values: Ansley 5 year model risk: 5.1%. NCI Lifetime model risk: 8.9%. Technique: Method: Targeted. Prior Study Comparison: 11/11/2022 Right MG 3D diag mammo w/cad RT, [facility]. 04/07/2023 Bilateral MG 3D screening mammo w/cad, [facility]. 04/07/2024 Bilateral MG 3D screening mammo w/cad, [facility]. Findings: The axilla of the left breast and the retroareolar of the left breast were scanned. Technique utilized:US breast axilla LT Image; Ultrasound imaging of: Palpable, retroareolar region and axilla. Normal-appearing left axillary lymph nodes. No suspicious mass or organizing fluid collection or enlarged lymph node. Overall Assessment: Benign, BI-RAD 2 Management: Screening Mammogram of both breasts in 5 months. A clinical breast exam by your physician is recommended on an annual basis and results should be correlated with mammographic findings. This exam should not preclude additional follow-up of suspicious palpable abnormalities. Results were given to the patient verbally at the time of exam. [facility], , 10/27/2024 3:11 PM. Electronically signed and approved by: Dinesh Brasher DO
== END | disposition home or self-care (01) ==
LOC: RADUSWWP 14:46
PROVIDERS: ATTEND Family Medicine
DX: R59.0 Localized enlarged lymph nodes (principal); Z78.0 Asymptomatic menopausal state; Z80.3 Family history of malignant neoplasm of breast

== ENCOUNTER → 2025-01-11 | Outpatient (CLI) | payer MEDICARE ==
[2025-01-11 13:29] VITALS: BP 109/71; PULSE 76; RESP 16; TEMP 98.2
--- NOTE | 2025-01-11 14:03 | P.SLEEP ---
History of Present Illness DATE: 01/11/2025 CONSULTATION/NEW PATIENT EVALUATION HISTORY OF PRESENT ILLNESS/SLEEP-WAKE EVALUATION: 79-year-old lady had been e valuated in the sleep center for possible obstructive sleep apnea hypopnea syndrome and insomnia. SLEEP SCHEDULE: Usually sleep schedule from 1011 PM to 66:30 AM. FALLING ASLEEP: Patient has difficulties with falling asleep, used to read in bedroom. DURING SLEEP: Patient usually sleeps on the back and side position with snoring and wakes up from sleep up to 4 times with 3 episodes of nocturia. Positive history of grinding teeth dry mouth, sleep talking no history of hypnogogical hallucinations, sleep paralysis, or cataplexy. DURING THE DAY/WAKE STATE: Usually patient does not take naps. [place] sleepiness scale is 3. PAST MEDICAL HISTORY:Acid reflux. PAST SURGICAL HISTORY: Hysterectomy, right arm surgical treatment for osteomyelitis, surgical treatment for basal cell carcinoma of the skin, pilonidal cyst surgical treatment, bilateral cataract surgery, right shoulder replacement. MEDICATIONS: Please see below. SOCIAL HISTORY: Please see below. FAMILY HISTORY: Please see below. REVIEW OF SYSTEMS: Snoring, multiple awakenings from sleep. No fevers. No double vision. No recent chest pain. No shortness of breath. No abdominal pain. No bleeding episodes. No blood in urine. No seizure episodes. PHYSICAL EXAMINATION: GENERAL: A pleasant patient without any distress. VITAL SIGNS: Please see below, weight 127 pounds, BMI 23.9. HEENT: PERRLA, EOMI. Evaluation of oropharynx showed tongue protrudes midline, low position of soft palate Mallampati 4. NECK: Supple. No JVD. Thyroid is not palpable. 14 inches in circumference. LUNGS: Clear to percussion and to auscultation. Good air exchange. No wheezing or rhonchi. HEART: S1, S2 regular. No murmurs, gallops or rubs. ABDOMEN: Soft and nontender. Bowel sounds are present. No organomegaly appreciated. EXTREMITIES: No clubbing or cyanosis. 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 Cranial nerves 2 to 7 intact. There is no fasciculation or atrophy noted. No focal deficits observed. ASSESSMENT: 1. Snoring, multiple awakenings from sleep, extremely low position of soft palate Mallampati 4. Obstructive sleep apnea hypopnea syndrome. 2. Difficulties to initiate sleep. Psychophysiological insomnia. 3. Acid reflux. 4. Status post right shoulder replacement. 5 status post bilateral cataract surgery. 6 . Status post basal cell carcinoma removed from the skin. 7. Status post surgical treatment for osteomyelitis for right arm. 8. Status post hysterectomy. PLAN: 1. Polysomnography for evaluation of patient's breathing during sleep. 2. I discussed with patient psychological techniques for treatment of insomnia including stimulus control, paradoxical intention. 3. Preferable position during sleep on the side. 4. No driving if patient feels any sleepiness. Patient is aware of civil and c riminal liability for unsafe driving. 5. Sleep hygiene with regular sleep time for at least 7.5 hours. Thank you very much for referring this patient for consultation. Sincerely, Brent Solo MD, PhD, FAASM. Diplomat of [place] [employer], Sleep Medicine Board by [place] [employer] Supervisor of [facility] [place] cc: Michael Lam MD Past Medical History Past Medical History: Cancer, GERD/Reflux, Osteoarthritis (OA) Additional Past Medical History / Comment(s): BASAL CELL CANCER, STOMACH ULCER, LUMP RIGHT BREAST-BENIGN, OSTEOMYELITIS RIGHT ARM History of Any Multi-Drug Resistant Organisms: None Reported Past Surgical History: Breast Surgery, Hysterectomy Additional Past Surgical History / Comment(s): BUNIONECTOMY, LUMPECTOMY'S RIGHT BREAST, PILONIDAL CYST, BASAL CELL CANCER, CATARACTS. Past Anesthesia/Blood Transfusion Reactions: No Reported Reaction Past Psychological History: No Psychological Hx Reported Smoking Status: Former smoker Past Alcohol Use History: None Reported Past Drug Use History: None Reported - Past Family History Mother Family Medical History: Cancer, Coronary Artery Disease (CAD), Hyperlipidemia, Hypertension, Osteoarthritis (OA), Pneumonia Additional Family Medical History / Comment(s): ULCERS Father Family Medical History: Coronary Artery Disease (CAD), Hyperlipidemia, Hypertension, Pneumonia Additional Family Medical History / Comment(s): SNORING Brother(s) Family Medical History: Diabetes Mellitus Medications and Allergies Home Medications Medication Instructions Recorded Confirmed Type Omeprazole 40 mg PO QAM 04/05/19 06/29/24 History Meloxicam 7.5 mg PO DIRECTED PRN 11/26/22 06/29/24 History Raloxifene [Evista] 60 mg PO DAILY 04/14/23 06/29/24 History Rosuvastatin [Crestor] 20 mg PO DAILY 09/30/23 06/29/24 History Nystatin 100,000Unit/gm Cream 1 applic TOPICAL BID #30 gm 06/01/24 06/29/24 Rx [Mycostatin Cream] Cyclobenzaprine [Flexeril] 5 mg PO DIRECTED PRN 01/11/25 01/11/25 History Allergies Allergy/AdvReac Type Severity Reaction Status Date / Time ciprofloxacin [From Cipro] Allergy Nausea Unverified 06/29/24 09:05 diphenhydramine Allergy Rash/Hives Unverified 06/29/24 09:05 [From Benadryl] meclizine [From Antivert] Allergy Rash/Hives Unverified 06/29/24 09:05 Penicillins Allergy Swelling Unverified 06/29/24 09:05 soap AdvReac Unknown rash- Verified 06/29/24 09:05 sensitive to many soaps. alcohol AdvReac Rash/Hives Unverified 06/29/24 09:05 cefuroxime [From Ceftin] AdvReac Nausea Unverified 06/29/24 09:05 cortisone AdvReac Rash/Hives Unverified 06/29/24 09:05 fluconazole AdvReac Swelling Unverified 06/29/24 09:05 nickel AdvReac Rash/Hives Unverified 06/29/24 09:05 Sulfa (Sulfonamide AdvReac Nausea Unverified 06/29/24 09:05 Antibiotics) tixocortol AdvReac Rash/Hives Unverified 06/29/24 09:05 wool AdvReac Rash/Hives Unverified 06/29/24 09:05 Physical Exam Vitals: Vital Signs Temp Pulse Resp BP Pulse Ox 01/11/25 13:28 98.2 F 76 16 109/71 97 Intake and Output 01/10/25 01/11/25 01/11/25 22:59 06:59 14:59 Other: Weight 57.606 kg Sleep Note - Sleep Data ESS Total: 3 - Sleep Note Sleep Note: Temperature: 98.2 F Pulse Rate: 76 Respiratory Rate: 16 Blood Pressure: 109/71 SpO2: 97 Height: 5 ft 1.2 in Weight: 57.606 kg BMI: Neck Circumference: 14
== END ==
LOC: 3 N SLEEP 13:21
PROVIDERS: ATTEND Internal Medicine
DX: G47.33 Obstructive sleep apnea (adult) (pediatric) (principal); K21.9 Gastro-esophageal reflux disease without esophagitis; Z96.611 Presence of right artificial shoulder joint; Z98.42 Cataract extraction status, left eye; Z98.41 Cataract extraction status, right eye; Z90.710 Acquired absence of both cervix and uterus; Z85.828 Personal history of other malignant neoplasm of skin; Z87.39 Personal history of other diseases of the musculoskeletal system and connective tissue; Z88.0 Allergy status to penicillin; Z88.2 Allergy status to sulfonamides; Z91.048 Other nonmedicinal substance allergy status; Z88.1 Allergy status to other antibiotic agents; Z88.8 Allergy status to other drugs, medicaments and biological substances; Z88.5 Allergy status to narcotic agent; Z87.891 Personal history of nicotine dependence
CPT/HCPCS: 99211